=== PATIENT | female | born 1960 | race Hispanic/Latino ===

== ENCOUNTER 2017-04-15 11:16 | Emergency (ER) | payer MEDICAID, OTHER, SELFPAY ==
[2017-04-15 11:42] LABS: #Eosinphils 0.1 thou/uL (0.0-0.7); #Lymphocytes 1.2 thou/uL (1.20-3.40); #Monocytes 0.2 thou/uL (0.11-0.59); #Neutrophils 2.9 thou/uL (1.40-6.50); %Eosinophils 1.8 % (0.0-10.0); %Lymphocytes 27.6 % (21.0-51.0); Hematocrit 35.8 % (36.0-47.0); Mean Platelet Volume 8.8 fL (7.4-10.4); Red Blood Cell (RBC) Count 4.19 mill/uL (4.20-5.40); White Blood Cell (WBC) Count 4.4 thou/uL (4.8-10.8)
--- NOTE | 2017-04-15 11:45 | RAD ---
CHEST ONE VIEW: 04/15/2017 11:33 a.m. HISTORY: Chest pain. COMPARISON: 09/14/2016 FINDINGS: The heart size is borderline. The lungs are well expanded without focal areas of consolidation, pne umothorax, or pleural effusions. No degenerative changes in the spine. IMPRESSION: No acute process. POS: [facility]
[2017-04-15 12:04] LABS: ALT (SGPT) 7 U/L (8-55); AST (SGOT) 14 U/L (5-34); Alkaline Phosphatase 72 U/L (40-150); Anion Gap 12 mmol/L (10-20); BUN (Urea Nitrogen) 17 mg/dL (9.8-20.1); Bilirubin, Total 0.8 mg/dL (0.2-1.2); CK (CPK) 147 U/L (29-168); Calc. Creatinine Clearance 0 mL/min (70-130); Calcium 9.3 mg/dL (7.8-10.44); Carbon Dioxide 27 mmol/L (22-29); Chloride 105 mmol/L (98-107); Estimated GFR-MDRD Greater than 90; Globulin 3.2 g/dL (2.4-3.5); Lipase 18 U/L (8-78); Protein, Total 7.3 g/dL (6.0-8.3)
[2017-04-15 12:05] LABS: Troponin I Less than 0.010 ng/mL (< 0.028)
[2017-04-15 14:36] LABS: Troponin I 0.011 ng/mL (< 0.028)
== END 2017-04-15 15:05 | disposition home or self-care (01) ==
LOC: ERS 11:16
DX: R07.9 Chest pain, unspecified (principal); H10.9 Unspecified conjunctivitis; I25.10 Atherosclerotic heart disease of native coronary artery without angina pectoris; E78.5 Hyperlipidemia, unspecified; E11.9 Type 2 diabetes mellitus without complications; I10 Essential (primary) hypertension; F41.9 Anxiety disorder, unspecified; F32.9 Major depressive disorder, single episode, unspecified; F17.210 Nicotine dependence, cigarettes, uncomplicated; Z79.82 Long term (current) use of aspirin; Z79.899 Other long term (current) drug therapy
CPT/HCPCS: 36415; 71010; 80053; 82553; 83690; 83880; 84484; 85025; 93005; 96374

== ENCOUNTER 2017-05-09 06:17 | Observation (INO) | payer SELFPAY ==
[2017-05-09 07:16] LABS: #Eosinphils 0.1 thou/uL (0.0-0.7); #Lymphocytes 1.4 thou/uL (1.20-3.40); #Monocytes 0.3 thou/uL (0.11-0.59); #Neutrophils 3.2 thou/uL (1.40-6.50); %Basophils 0.5 % (0.0-1.0); %Lymphocytes 27.2 % (21.0-51.0); %Monocytes 6.3 % (0.0-10.0); Hematocrit 42.8 % (36.0-47.0); Mean Platelet Volume 8.8 fL (7.4-10.4); Red Blood Cell (RBC) Count 4.97 mill/uL (4.20-5.40)
[2017-05-09 07:40] LABS: ALT (SGPT) 35 U/L (8-55); AST (SGOT) 34 U/L (5-34); Alkaline Phosphatase 97 U/L (40-150); Anion Gap 12 mmol/L (10-20); BUN (Urea Nitrogen) 19 mg/dL (9.8-20.1); Bilirubin, Total 1.1 mg/dL (0.2-1.2); Calc. Creatinine Clearance 0 mL/min (70-130); Calcium 9.4 mg/dL (7.8-10.44); Carbon Dioxide 25 mmol/L (22-29); Chloride 106 mmol/L (98-107); Estimated GFR-MDRD 80; Globulin 3.4 g/dL (2.4-3.5); Lipase 32 U/L (8-78); Protein, Total 7.7 g/dL (6.0-8.3)
[2017-05-09 07:44] LABS: Troponin I 0.028 ng/mL (< 0.028)
--- NOTE | 2017-05-09 08:44 | RAD ---
SINGLE VIEW OF THE CHEST: 05/09/17 COMPARISON: 04/15/17 HISTORY: CHF and dyspnea. Shortness of breath over the last three days. FINDINGS: Single view of the chest shows a normal sized cardiomediastinal silhouette. Increased interstitial m arkings are present. There is no evidence of consolidation, mass or pleural effusion. IMPRESSION: No evidence of acute cardiopulmonary disease. POS: [facility]
[2017-05-09] MEDS ORDERED: Ketorolac Tromethamine 30 MG/ML VIAL ONE (09:49)
--- NOTE | 2017-05-09 10:38 | CT ---
CT PULMONARY ANGIOGRAM WITH IV CONTRAST AND 3D MIP RECONSTRUCTIONS 05/09/17 PROVIDED CLINICAL HISTORY: Dyspnea. FINDINGS: Comparison is made with the study dated 04/28/16. The heart, pericardium and great vessels demonstrate an unremarkable CT appearance. Cardiac stent ma terial is seen. There is no evidence for central or segmental pulmonary embolus. There is prominence of the pulmonary vasculature and thickening of the pulmonary interstitium likely reflecting changes of congestive failure. There are small bilateral pleural effusions. There is no evidence for pneumo thorax. No evidence for thoracic lymph node enlargement. The airway appears patent and of normal edith iber. The visualized portions of the upper abdomen demonstrate no acute findings. Biliary gas is aga in noted, presumably on the basis of prior sphincterotomy. IMPRESSION: 1. No evidence for central or segmental pulmonary embolus. 2. Findings suggesting congestive failure. POS: [facility]
[2017-05-09 11:33] LABS: Troponin I 0.022 ng/mL (< 0.028)
[2017-05-09 11:43] VITALS: BMI 29.5
[2017-05-09] MEDS ORDERED: Senokot 8.6 MG TAB PO PRN (11:52)
[2017-05-09] MEDS ORDERED: Ondansetron ODT 4 MG TAB PO PRN (11:52)
[2017-05-09] MEDS ORDERED: Mag-Al 1200 mg/1200 mg/30 ML UDCUP PO PRN (11:52)
[2017-05-09] MEDS ORDERED: Ondansetron HCl/PF 4 MG/2 ML Vial IVP PRN (11:52)
[2017-05-09] MEDS ORDERED: Milk Of Magnesia 30 ML UDCUP PO PRN (11:52)
[2017-05-09] MEDS ORDERED: Zolpidem Tartrate 5 MG TAB PO PRN (11:52)
[2017-05-09] MEDS ORDERED: Loperamide HCl 2 MG CAP PO PRN (11:52)
[2017-05-09] MEDS ORDERED: PROVENTIL INHALER 6.7 G (200 INHALATIONS) INH PRN (11:54)
[2017-05-09] MEDS ORDERED: Nitroglycerin 0.4 MG TAB (25 Tab Bottle) SL PRN (12:00)
--- NOTE | 2017-05-09 13:07 | HP ---
PRIMARY CARE PHYSICIAN: [facility] call admission. At this point, the patient is not following any prima care physician. REASON FOR ADMISSION: Acute on chronic systolic heart failure exacerbation. HISTORY OF PRESENT ILLNESS: A 57-year-old female who has underlying history of chronic sys tolic heart failure. Her echocardiography in 2015 showed EF 35-40% with diastolic dysfunction and m ost recent echocardiography in the 10/2016 showed improvement in EF to 40-45%. She also had a cardi ac catheterization in 04/2016 which showed 2-vessel coronary artery disease. At that time, medical therapy was advised. This patient does not have any insurance for about a year and she is no longer following primary car e physician. She reports that she still has some leftover medication from previous hospitalization, but most of the medicine she ran out. At this time, she is coming to the emergency room with 2 weeks history of increasing shortness of br eath after walking few steps, she gets out of breath. 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 She also reports some leg swelling. She also feels weight gain. She does report orthopnea as well as PND. She feels congestion in her with ches t tightness. She denies any exertional related chest pain, palpitations or syncope. She denies any fever, chills, or cough. She denies any flu-like illness. She denies any recent exposure. She de nies any sick exposure. REVIEW OF SYSTEMS: The following complete review of systems was negative, unless otherwise mentione d in the HPI or below: Constitutional: Weight loss or gain, ability to conduct usual activities. Skin: Rash, itching. Eyes: Double vision, pain. ENT/Mouth: Nose bleeding, neck stiffness, pain, tenderness. Cardiovascular: Palpitations, dyspnea on exertion, orthopnea. Respiratory: Shortness of breath, wheezing, cough, hemoptysis, fever or night sweats. Gastrointestinal: Poor appetite, abdominal pain, heartburn, nausea, vomiting, constipation, or diar matthew. Genitourinary: Urgency, frequency, dysuria, nocturia. Musculoskeletal: Pain, swelling. Neurologic/Psychiatric: Anxiety, depression. Allergy/Immunologic: Skin rash, bleeding tendency. Please see my HPI for pertinent positives and negative. All other review of system reviewed and ne gative except as mentioned in the HPI. PAST MEDICAL HISTORY: Chronic systolic and diastolic heart failure with EF 40-45%, coronary artery disease with a history of angioplasty and stent placement, hypertension, and dyslipidemia. PAST SURGICAL HISTORY: Cardiac catheterization with stent placement as well as angioplasty, tubal l igation, tonsillectomy, and cholecystectomy. PAST PSYCHIATRIC HISTORY: Anxiety and depression. SOCIAL HISTORY: The patient is working in [employer]. She is smoking few cigarettes on a daily basis, but quit smoking about 2 months ago. She denies any alcohol or other illicit drug abuse. FAMILY HISTORY: Mother has history of congestive heart failure, hypertension, and diabetes. Father of colon cancer by age of 76 years of age. Her of massive heart attack. Current ly, she stays with son and granddaughter. ALLERGIES: CODEINE AND LATEX. EMERGENCY ROOM COURSE: The patient is given aspirin 324 mg and Toradol 15 mg. CURRENT HOME MEDICATIONS: Proventil HFA 2 puffs q.4 hourly p.r.n., aspirin 81 mg p.o. daily, Lipito r 10 mg p.o. daily, Coreg 3.125 mg p.o. b.i.d., Lasix 20 mg p.o. daily, lisinopril 10 mg p.o. b.i.d. , Singulair 10 mg p.o. at bedtime, nitroglycerin 0.4 mg sublingual p.r.n., and Aldactone 25 mg p.o. daily. PHYSICAL EXAMINATION: VITAL SIGNS: On arrival, blood pressure 169/84, pulse 70, respiratory rate 22, temperature 97.6, sa turation 98% on room air, weight 68 kilograms. GENERAL: The patient is currently alert, awake, no obvious acute distress. HEENT: Head: Normocephalic and atraumatic. Eyes: Pupils round and reactive to light. Extraocula r muscles are intact. ENT: Oropharynx within normal limits. Moist mucous membranes. No oral lesi ons. No pharyngeal erythema, no exudate. NECK: Supple. Range of motion is normal. No meningeal signs of irritation. LUNGS: Bibasilar rales noted. No wheezing, no accessory muscles of respiration in use. CARDIAC: S1, S2 regular without any significant murmur, no gallop. ABDOMEN: Soft, bowel sounds present, nontender, nondistended. No organomegaly, no mass, no suprapu bic tenderness. BACK: Unremarkable, no CVA tenderness. EXTREMITIES: Upper extremity passive movements of all joints are normal. Lower extremity, trace bi lateral lower extremity edema noted. Good peripheral pulsation. SKIN: No skin rash. HEMATOLOGICAL: No lymphadenopathy. PSYCHIATRIC: Normal affect. SIGNIFICANT LABS: EKG showing normal sinus rhythm, LVH. Chest x-ray: Cardiomegaly. CT angio nega tive for PE, but finding consistent with CHF. CBC: WBC 5.0, hemoglobin 14.6, platelets 201, D-dime r 0.74. BMP: Sodium 139, potassium 4.0, chloride 106, carbon dioxide 25, BUN 19, creatinine 0.75, glucose 110, calcium 9.4. LFT: AST 34, ALT 35, alkaline phosphatase 97, albumin 4.3, lipase 32, CK -MB 1.2, troponin I 0.028 and 0.022. BNP 469.3. ASSESSMENT AND PLAN/IMPRESSION: 1. Acute on chronic systolic and diastolic congestive heart failure exacerbation suspecting from me dication noncompliance. At this point, the patient has history of orthopnea, PND, leg swelling, denise vated BNP and dyspnea on exertion all supports diagnosis of congestive heart failure exacerbation. She had echocardiography this year on 10/2016 which showed EF 40-45%. This patient will be admitted to telemetry floor for observation. We will treat her today and tomorrow with IV Lasix. We will p rescribe all new medication prescriptions to her because she ran out and she does not have any prima care physician. Heart failure education given, fluid restriction 1200 mL per day discussed. 2. Coronary artery disease, 2-vessel. She had cardiac catheterization recently and medical therapy was advised. At this point, we will continue aspirin 81 mg p.o. daily, Lipitor 10 mg p.o. daily, C oreg 3.125 mg b.i.d., along with lisinopril 10 mg p.o. b.i.d. 3. Hypertension, not well controlled. Continue with Coreg 3.125 mg b.i.d., lisinopril 10 mg p.o. b .i.d., Aldactone 25 mg p.o. daily and adjust blood pressure medication. We will also add Nitro-Bid 0.5 inch q.8 hourly and upon discharge we will consider adding Imdur 30 mg p.o. daily. 4. Dyslipidemia. Continue Lipitor 10 mg p.o. at bedtime. 5. Tobacco abuse disorder. Smoking cessation counseling given. 6. Deep venous thrombosis prophylaxis not needed because we are expecting discharge in 24 hours. 7. Gastrointestinal prophylaxis. Pepcid 20 mg p.o. b.i.d. 8. Code status: The patient is FULL CODE. The patient does not have any surrogate decision maker. Disposition and plan based on clinical course, likely 24 hours. Tomorrow, we will repeat labs and r eplace electrolytes if needed. We will prescribe all new medication upon discharge.
[2017-05-09] MEDS ORDERED: ISOVUE-370 76%-LOCM 1 ML ONE (13:40)
[2017-05-09] MEDS: Nitroglycerin 2% Ointment 1 INCH/1 GM Packet TOP SCH ×2 (14:01→21:21)
[2017-05-09] MEDS: Furosemide 40 MG/4 ML VIAL SLOW IVP SCH (14:03)
[2017-05-09 14:07] LABS: Troponin I 0.012 ng/mL (< 0.028)
[2017-05-09] MEDS: Carvedilol 3.125 MG TAB PO SCH (17:10)
[2017-05-09] MEDS: Acetaminophen 325 MG TAB PO PRN ×2 (17:12→21:25)
[2017-05-09] MEDS: Lisinopril 10 MG TAB PO SCH (20:05)
[2017-05-09] MEDS: Famotidine 20 MG TAB PO SCH (20:06)
[2017-05-09] MEDS ORDERED: FLU VACC QS2017-18 36 mo. & older 0.5 ML SYRINGE IM ONE (21:00)
[2017-05-09] MEDS ORDERED: Montelukast Sodium 10 mg Tablet PO SCH (21:00)
[2017-05-10] MEDS: Nitroglycerin 2% Ointment 1 INCH/1 GM Packet TOP SCH ×2 (05:06→16:25)
[2017-05-10] MEDS: Acetaminophen 325 MG TAB PO PRN (05:07)
[2017-05-10] MEDS: Furosemide 40 MG/4 ML VIAL SLOW IVP SCH ×2 (05:07→16:25)
[2017-05-10 05:20] LABS: #Eosinphils 0.1 thou/uL (0.0-0.7); #Lymphocytes 1.1 thou/uL (1.20-3.40); #Monocytes 0.3 thou/uL (0.11-0.59); #Neutrophils 2.9 thou/uL (1.40-6.50); %Basophils 0.2 % (0.0-1.0); %Eosinophils 2.2 % (0.0-10.0); %Lymphocytes 24.9 % (21.0-51.0); %Monocytes 7.2 % (0.0-10.0); Hematocrit 36.3 % (36.0-47.0); Mean Platelet Volume 9.4 fL (7.4-10.4); Red Blood Cell (RBC) Count 4.11 mill/uL (4.20-5.40); White Blood Cell (WBC) Count 4.5 thou/uL (4.8-10.8)
[2017-05-10 05:23] LABS: Anion Gap 10 mmol/L (10-20); BUN (Urea Nitrogen) 17 mg/dL (9.8-20.1); Calc. Creatinine Clearance 108 mL/min (70-130); Carbon Dioxide 28 mmol/L (22-29); Chloride 104 mmol/L (98-107); Estimated GFR-MDRD Greater than 90; Magnesium 2.2 mg/dL (1.6-2.6); Uric Acid 3.6 mg/dL (2.6-6.0)
[2017-05-10] MEDS ORDERED: Sodium Chloride 0.9% 0 ML ONE (07:43)
[2017-05-10] MEDS ORDERED: Spironolactone 25 MG TAB PO SCH (08:00)
[2017-05-10] MEDS ORDERED: Potassium Chloride 20 MEQ TAB PO SCH (08:00)
[2017-05-10] MEDS: Famotidine 20 MG TAB PO SCH (08:58)
[2017-05-10] MEDS: Lisinopril 10 MG TAB PO SCH (08:58)
[2017-05-10] MEDS: Carvedilol 3.125 MG TAB PO SCH (08:59)
[2017-05-10] MEDS ORDERED: Atorvastatin Calcium 10 MG TAB PO SCH (09:00)
[2017-05-10] MEDS ORDERED: Aspirin 81 mg Enteric Coated Tablet PO SCH (09:00)
--- NOTE | 2017-05-10 10:01 | PDOC.PN ---
- Subjective Encounter Start Date: 05/10/17 Encounter Start Time: 08:15 Subjective: breathing better, no chest pain - Objective Resuscitation Status: Resuscitation Status FULL:Full Resuscitation MAR Reviewed: Yes Vital Signs & Weight: Vital Signs (12 hours) Temp Pulse Resp BP BP Pulse Ox 05/10/17 09:00 97.7 F 65 16 05/10/17 08:58 139/65 05/10/17 07:44 97.7 F 65 16 139/65 97 05/10/17 04:00 97.8 F 56 L 18 129/67 97 05/10/17 03:56 97 Weight Weight 150 lb I&O: 05/09/17 05/10/17 05/11/17 06:59 06:59 06:59 Intake Total 664 Output Total 1800 Balance -1136 Result Diagrams: 05/10/17 03:50 05/10/17 03:50 Additional Labs: Accuchecks 05/09/17 05/09/17 20:25 16:46 POC Glucose 131 H 100 Phys Exam - Physical Examination HEENT: PERRLA, moist MMs Neck: no JVD, supple Respiratory: no wheezing, no rales Cardiovascular: RRR, no significant murmur Gastrointestinal: soft, non-tender, positive bowel sounds Musculoskeletal: no edema, pulses present Neurological: non-focal, moves all 4 limbs Psychiatric: A&O x 3 Dx/Plan (1) CHF exacerbation Code(s): I50.9 - HEART FAILURE, UNSPECIFIED Status: Acute Qualifiers: Congestive heart failure type: systolic Qualified Code(s): I50.23 - Acute on chronic systolic (congestive) heart failure Comment: ef of around 45% (2) Asthma Code(s): J45.909 - UNSPECIFIED ASTHMA, UNCOMPLICATED Status: Chronic Qualifiers: Asthma severity: mild Asthma persistence: intermittent Asthma complication type: uncomplicated Qualified Code(s): J45.20 - Mild intermittent asthma, uncomplicated (3) CAD (coronary artery disease) Code(s): I25.10 - ATHSCL HEART DISEASE OF [place] CORONARY ARTERY W/O ANG PCTRS Status: Chronic Qualifiers: Coronary Disease-Associated Artery/Lesion type: [place] artery [place] vs. transplanted heart: [place] heart Associated angina: without angina Qualified Code(s): I25.10 - Atherosclerotic heart disease of [place] coronary artery without angina pectoris (4) Cardiomyopathy Code(s): I42.9 - CARDIOMYOPATHY, UNSPECIFIED Status: Chronic (5) DM type 2 (diabetes mellitus, type 2) Status: Chronic Qualifiers: Diabetes mellitus complication status: with unspecified complications Diabetes mellitus termite exterminator helper insulin use: without termite exterminator helper use Qualified Code( s): E11.8 - Type 2 diabetes mellitus with unspecified complications (6) Dyslipidemia Code(s): E78.5 - HYPERLIPIDEMIA, UNSPECIFIED Status: Chronic (7) HTN (hypertension) Code(s): I10 - ESSENTIAL (PRIMARY) HYPERTENSION Status: Chronic Qualifiers: Hypertension type: essential hypertension - Plan hemostable -: wants help with medications, cant afford -: may dc home if med help is done * .
[2017-05-10 15:17] VITALS: BP 142/66; TEMP 98.6
--- NOTE | 2017-05-10 20:04 | DIS ---
DATE OF ADMISSION: 05/09/2017 DATE OF DISCHARGE: 05/10/2017 DISCHARGE DISPOSITION: To home. PRIMARY DISCHARGE DIAGNOSES: Acute on chronic congestive heart failure exacerbation with systolic and diastolic dysfunction, resolved. SECONDARY DISCHARGE DIAGNOSES: History of cardiomyopathy, hypertension, diabetes mellitus type 2, coronary artery disease, and dyslipidemia. PROCEDURES DONE DURING HOSPITALIZATION: The patient has had CT angio chest done , which showed no evidence of PE. This finding suggestive of pulmonary vascular congestion. BNP was 469. Troponin x3 was negative. DISCHARGE MEDICATIONS: Albuterol inhaler q.6 hourly p.r.n., aspirin 81 mg p.o. daily, Lipitor 10 mg p.o. daily, Coreg 3.125 mg p.o. twice daily, Lasix 20 mg p.o. daily, lisinopril 10 mg p.o. twice daily, Singulair 10 mg p.o. at bedtime, and spironolactone 25 mg p.o. daily. ALLERGIES: CODEINE, LATEX. DISCHARGE PLAN: The patient to follow up with primary care physician in 1 week. BRIEF COURSE DURING HOSPITALIZATION: The patient initially got admitted on the with complaints of shortness of breath, which has been progressively getting worse from last two weeks. She was essentially admitted for acute congestive heart failure exacerbation with systolic and diastolic dysfunction. The patient was noncompliant with medications due to financial reasons. She was gently diuresed during her stay. She was ambulating and eating well prior to discharge. Case management consultation was requested for help with medications for home use. She has been counseled with regarding medication compliance and to follow up with her primary care physician in 1 week. Please see a [id number] documentation on [facility] for the day of discharge. MTDD
== END 2017-05-10 16:24 | disposition home or self-care (01) ==
LOC: ERS 06:17 → 2SW 10:30
PROVIDERS: ADMIT Hospitalist; ATTEND Hospitalist
DX: I11.0 Hypertensive heart disease with heart failure (principal); I50.43 Acute on chronic combined systolic (congestive) and diastolic (congestive) heart failure; I42.9 Cardiomyopathy, unspecified; E11.9 Type 2 diabetes mellitus without complications; I25.10 Atherosclerotic heart disease of native coronary artery without angina pectoris; F17.210 Nicotine dependence, cigarettes, uncomplicated; Z88.5 Allergy status to narcotic agent; Z91.040 Latex allergy status; Z79.899 Other long term (current) drug therapy; Z98.51 Tubal ligation status; Z90.49 Acquired absence of other specified parts of digestive tract; Z82.49 Family history of ischemic heart disease and other diseases of the circulatory system
CPT/HCPCS: 36415; 36416; 71010; 71275; 80048; 80053; 82553; 83690; 83735; 83880; 84484; 84550; 85025; 85379; 90471; 90682; 93005; 93798; 94760; 96374; 96375; 96376; A4216; G0008; G0378; J1885; J1940; Q2036

== ENCOUNTER 2017-07-08 07:33 | Emergency (ER) | payer MEDICAID, OTHER, SELFPAY | END 2017-07-08 10:09 | disposition home or self-care (01) | LOC: ERS 07:33 | DX: B34.9 Viral infection, unspecified (principal); I25.10 Atherosclerotic heart disease of native coronary artery without angina pectoris; E78.5 Hyperlipidemia, unspecified; I11.0 Hypertensive heart disease with heart failure; I50.9 Heart failure, unspecified; E11.9 Type 2 diabetes mellitus without complications; F41.9 Anxiety disorder, unspecified; F32.9 Major depressive disorder, single episode, unspecified; F17.210 Nicotine dependence, cigarettes, uncomplicated; Z79.899 Other long term (current) drug therapy; Z79.82 Long term (current) use of aspirin | CPT/HCPCS: 99406 ==

== ENCOUNTER 2017-09-25 11:34 | Inpatient (IN) | payer OTHER, SELFPAY ==
[2017-09-25 12:06] LABS: #Eosinphils 0.1 thou/uL (0.0-0.7); #Lymphocytes 1.1 thou/uL (1.20-3.40); #Monocytes 0.3 thou/uL (0.11-0.59); #Neutrophils 3.8 thou/uL (1.40-6.50); %Basophils 0.2 % (0.0-1.0); %Eosinophils 1.3 % (0.0-10.0); %Lymphocytes 20.8 % (21.0-51.0); %Monocytes 4.8 % (0.0-10.0); %Neutrophils 72.9 % (42.0-75.0); Hemoglobin 12.5 g/dL (12.0-16.0); Mean Corpuscular HGB CONC 33.7 g/dL (32.0-36.0); Mean Corpuscular Hemoglobin 28.5 pg (27.0-31.0); Mean Corpuscular Volume 84.6 fl (81.0-99.0); Mean Platelet Volume 8.3 fL (7.4-10.4); Platelet Count 187 thou/uL (130-400); RBC Distribution Width 12.3 % (11.5-14.5); White Blood Cell (WBC) Count 5.2 thou/uL (4.8-10.8)
--- NOTE | 2017-09-25 12:10 | RAD ---
PORTABLE CHEST 1 VIEW: DATE: 09/25/17. TIME: 12:04 p.m. HISTORY: Shortness of breath, CHF, chest pain. FINDINGS: Comparison is made with the exam of 05/09/17. The heart size is enlarged. No lobar consolidation, pneumothorax, eliane pulmonary edema, or pleural effusions are seen. IMPRESSION: Cardiomegaly without overt congestive heart failure. POS: [facility]
[2017-09-25 12:33] LABS: ALT (SGPT) 21 U/L (8-55); AST (SGOT) 20 U/L (5-34); Albumin 4.3 g/dL (3.5-5.0); Alkaline Phosphatase 103 U/L (40-150); Anion Gap 12 mmol/L (10-20); BUN (Urea Nitrogen) 20 mg/dL (9.8-20.1); Bilirubin, Total 0.9 mg/dL (0.2-1.2); Calc. Creatinine Clearance 0 mL/min (70-130); Calcium 9.3 mg/dL (7.8-10.44); Carbon Dioxide 23 mmol/L (22-29); Chloride 107 mmol/L (98-107); Estimated GFR-MDRD 90; Glucose 155 mg/dL (70-105); Potassium 3.7 mmol/L (3.5-5.1); Protein, Total 7.3 g/dL (6.0-8.3); Sodium 138 mmol/L (136-145)
[2017-09-25 12:36] LABS: CKMB 0.7 ng/mL (0-6.6); Troponin I 0.013 ng/mL (< 0.028)
[2017-09-25] MEDS ORDERED: Lisinopril 10 MG TAB ONE (12:59)
[2017-09-25] MEDS ORDERED: Furosemide 20 MG/2 ML VIAL ONE (13:07)
[2017-09-25] MEDS ORDERED: Hydrochlorothiazide 25 MG TAB PO SCH (13:30)
[2017-09-25] MEDS ORDERED: Albuterol Sulfate 2.5 mg/3 ml Neb NEB PRN (14:33)
[2017-09-25] MEDS ORDERED: HumaLOG 300 UNITS/3 ML VIAL SC PRN (14:39)
[2017-09-25] MEDS ORDERED: Dextrose 50% Abboject 50 ML SYRINGE SLOW IVP PRN (14:39)
[2017-09-25] MEDS ORDERED: Dextrose 5% in Water 1,000 ML IV PRN (14:39)
[2017-09-25] MEDS ORDERED: Nitroglycerin 0.4 MG TAB (25 Tab Bottle) SL PRN (14:57)
[2017-09-25] MEDS ORDERED: Milk Of Magnesia 30 ML UDCUP PO PRN (14:58)
--- NOTE | 2017-09-25 15:44 | HP ---
PRIMARY CARE PHYSICIAN: None. PRESENTING COMPLAINT: Chest pain. HISTORY OF PRESENT ILLNESS: Monalisa Fink is a 57-year-old with a past medical history of asthma, C HF, CAD status post stents, hypertension, and depression who presented to the emergency room with a 3 -week history of intermittent chest pain. She reports substernal tightness rated 4-5/10, which does not radiate, aggravated by walking up the stairs and relieved by using her nitroglycerin. She report s that about 3 days ago, the symptoms got worse and was associated with nausea and fatigue, but no vo miting. She also experienced some wheezing and felt like she was suffocating. She states that she r an out of her medications about a month ago and the last time she took nitroglycerin was about a week ago. At the emergency room, she was not in any acute distress. Labs were largely unremarkable. In itial troponin was negative. Her BNP was slightly elevated from her baseline at around 600. Chest x -ray, however, did not show any signs of vascular congestion. EKG showed no signs of acute ischemia. He received aspirin, one dose of IV furosemide and her home medications of hydrochlorothiazide and lisinopril. She was then admitted for chest pain to rule out ACS. PAST MEDICAL HISTORY: Asthma, CHF, CAD status post stent, hypertension, and depression. PAST SURGICAL HISTORY: Tonsillectomy and stent placement. FAMILY HISTORY: Mom has CAD, other family history noncontributory. SOCIAL HISTORY: She is a former smoker and drinks alcohol on rare occasions. She does not use any i llicit drugs. ALLERGIES: CODEINE and LATEX. CODE STATUS: FULL. REVIEW OF SYSTEMS: Constitutional: Denies fevers, chills, headaches. HEENT: Negative. Respirator y: Wheezing. Denies cough, shortness of breath, or sputum production. Cardiovascular: Per HPI. D enies palpitations, edema, PND, orthopnea. Gastrointestinal: Negative except as stated in HPI. Gen itourinary: Negative. Musculoskeletal: Negative. Skin: Negative. Hematologic: Negative. Psych iatric: Negative. Neurologic: Negative. Allergy/Immunology: Negative. PHYSICAL EXAMINATION: VITAL SIGNS: Within normal limits. GENERAL: Not in acute distress, sitting comfortably in bed. HEENT: Normocephalic, atraumatic. PERRLA, EOMI, not pale, anicteric with moist mucous membranes. NECK: Supple, with full range of movement. No JVD. LUNGS: Vesicular breath sounds bilaterally with no wheezes or rales. CARDIOVASCULAR: S1 and S2, only with no murmurs, rubs or gallops. Chest not tender to palpation. ABDOMEN: Bowel sounds present, nontender, nondistended, no organomegaly. MUSCULOSKELETAL: No edema, no skeletal abnormalities. SKIN: Warm, dry, well-perfused. No rashes or lesions. NEUROLOGIC: Alert and well oriented to time, place and person. No focal deficits. PSYCHIATRIC: Normal mood and affect. LABORATORY DATA: As stated in HPI. IMAGING: As stated in the HPI. EKG as stated in HPI. ASSESSMENT AND PLAN: 1. Chest pain/angina. The patient had a significant cardiac history and presents with what seems to be stable angina. Symptoms are likely from her medication nonadherence. She reports she does not h ave a primary care physician and no insurance to procure her medications. She is, however, in the pr ocess of getting insurance through her new job and is waiting for that to kick in. We will admit to telemetry, trend cardiac enzymes, place on nitroglycerin and IV morphine for chest pain p.r.n. We wi ll observe overnight and if symptoms persist, we will get a Cardiology consult. 2. Asthma history. Has not been compliant with her medications, so we will place on albuterol nebul izers p.r.n. for shortness of breath. 3. Coronary artery disease, status post stents. For plan, see problem #1. 4. Hypertension. On outpatient basis, she takes lisinopril and carvedilol. We will resume these me dications. 5. Congestive heart failure. She is not in acute exacerbation, although she received a dose of IV f urosemide in the emergency room for elevated BNP. Clinically, not in congestive heart failure. We w ill resume home medications including furosemide 20 mg daily and spironolactone 25 mg daily. Her las t ejection fraction was about 40%. 6. Depression. Denies depress moods, homicidal or suicidal ideations.
[2017-09-25] MEDS ORDERED: Ketorolac Tromethamine 30 MG/ML VIAL ONE (15:50)
[2017-09-25 19:14] LABS: Troponin I 0.023 ng/mL (< 0.028)
[2017-09-25 19:25] VITALS: BMI 29.1
[2017-09-25] MEDS: Famotidine 20 MG TAB PO SCH (21:43)
[2017-09-25] MEDS: Docusate 100 MG CAP PO SCH (21:43)
[2017-09-26 01:02] LABS: Troponin I 0.019 ng/mL (< 0.028)
[2017-09-26 05:52] LABS: #Eosinphils 0.1 thou/uL (0.0-0.7); #Lymphocytes 1.4 thou/uL (1.20-3.40); #Monocytes 0.4 thou/uL (0.11-0.59); #Neutrophils 2.9 thou/uL (1.40-6.50); %Basophils 0.8 % (0.0-1.0); %Eosinophils 2.7 % (0.0-10.0); %Lymphocytes 28.5 % (21.0-51.0); %Monocytes 7.4 % (0.0-10.0); %Neutrophils 60.6 % (42.0-75.0); Mean Corpuscular HGB CONC 34.5 g/dL (32.0-36.0); Mean Corpuscular Volume 86.9 fl (81.0-99.0); Mean Platelet Volume 8.8 fL (7.4-10.4); Platelet Count 177 thou/uL (130-400); RBC Distribution Width 12.2 % (11.5-14.5); White Blood Cell (WBC) Count 4.8 thou/uL (4.8-10.8)
[2017-09-26 05:58] LABS: Hemoglobin A1c 4.9 % (4.0-6.0)
[2017-09-26 06:00] LABS: Anion Gap 13 mmol/L (10-20); BUN (Urea Nitrogen) 17 mg/dL (9.8-20.1); Calc. Creatinine Clearance 113 mL/min (70-130); Calcium 8.9 mg/dL (7.8-10.44); Carbon Dioxide 24 mmol/L (22-29); Cardiac Risk 3.5 (Less than 4.5); Chloride 104 mmol/L (98-107); Cholesterol 162 mg/dl (< 200 Desired); Estimated GFR-MDRD Greater than 90; Glucose 95 mg/dL (70-105); HDL Cholesterol 46 mg/dL (>60 Neg Risk); LDL Cholesterol, Calculated 96 mg/dL; Potassium 3.2 mmol/L (3.5-5.1); Sodium 138 mmol/L (136-145); Triglycerides 101 mg/dL (Less than 150)
[2017-09-26] MEDS: Famotidine 20 MG TAB PO SCH ×2 (09:03→21:22)
[2017-09-26] MEDS: Enoxaparin Sodium 40 MG/0.4 ML SYRINGE SC SCH (09:04)
[2017-09-26] MEDS: Docusate 100 MG CAP PO SCH ×2 (09:04→21:22)
[2017-09-26] MEDS: Potassium Chloride 20 MEQ TAB PO SCH ×2 (09:09→17:06)
[2017-09-26] MEDS: Ondansetron ODT 4 MG TAB PO PRN (09:09)
[2017-09-26] MEDS: Lisinopril 10 MG TAB PO SCH ×2 (09:10→21:22)
[2017-09-26] MEDS: Carvedilol 3.125 MG TAB PO SCH ×2 (09:10→17:06)
[2017-09-26] MEDS: Spironolactone 25 MG TAB PO SCH (09:10)
[2017-09-26] MEDS: Atorvastatin Calcium 10 MG TAB PO SCH (09:10)
[2017-09-26] MEDS: Aspirin 81 mg Enteric Coated Tablet PO SCH (09:10)
[2017-09-26] MEDS: Furosemide 20 MG TAB PO SCH (09:10)
--- NOTE | 2017-09-26 11:45 | PDOC.PN ---
- Subjective Encounter Start Date: 09/26/17 Encounter Start Time: 11:48 Subjective: Still has intermittent chest pain -: No acute events overnight. - Objective MAR Reviewed: Yes Vital Signs & Weight: Vital Signs (12 hours) Temp Pulse Resp BP BP Pulse Ox 09/26/17 09:10 140/72 09/26/17 08:00 97.8 F 66 17 140/72 95 09/26/17 04:00 98 F 66 18 137/65 98 Weight Weight 150 lb 11.2 oz I&O: 09/25/17 09/26/17 09/27/17 06:59 06:59 06:59 Intake Total 480 Output Total 600 Balance -120 Result Diagrams: 09/26/17 05:27 09/26/17 05:27 Additional Labs: Accuchecks 09/26/17 09/26/17 09/25/17 11:26 06:20 20:45 POC Glucose 99 97 151 H Phys Exam - Physical Examination Constitutional: NAD HEENT: PERRLA, moist MMs, sclera anicteric Neck: supple, full ROM Respiratory: no wheezing, no rales, no rhonchi, clear to auscultation bilateral Cardiovascular: RRR, no significant murmur, no rub Gastrointestinal: soft, non-tender, no distention, positive bowel sounds Musculoskeletal: no edema, pulses present Neurological: non-focal, moves all 4 limbs Psychiatric: normal affect, A&O x 3 Skin: no rash, normal turgor Dx/Plan (1) Chest pain Code(s): R07.9 - CHEST PAIN, UNSPECIFIED Status: Resolved Comment: Improving. Cardiac enzymes trended and negative. Likely 2/2 medication adherence. Will obtain a cardiology consult. Continue NTG and morphine PRN for chest pain. (2) CAD (coronary artery disease) Code(s): I25.10 - ATHSCL HEART DISEASE OF [place] CORONARY ARTERY W/O ANG PCTRS Status: Chronic Qualifiers: Coronary Disease-Associated Artery/Lesion type: unspecified vessel or lesion type [place] vs. transplanted heart: [place] heart Associated angina: with stable angina Qualified Code(s): I25.118 - Atherosclerotic heart disease of [place] coronary artery with other forms of angina pectoris Comment: As above (3) Systolic CHF, chronic Code(s): I50.22 - CHRONIC SYSTOLIC (CONGESTIVE) HEART FAILURE Status: Chronic Comment: Not in acute exacerbation. Will resume home meds. (4) HTN (hypertension) Code(s): I10 - ESSENTIAL (PRIMARY) HYPERTENSION Status: Chronic Qualifiers: Hypertension type: essential hypertension Comment: Fairly well controlled. Will continue home meds. (5) Asthma Code(s): J45.909 - UNSPECIFIED ASTHMA, UNCOMPLICATED Status: Chronic Qualifiers: Asthma severity: mild Asthma persistence: intermittent Asthma complication type: unspecified Qualified Code(s): J45.20 - Mild intermittent asthma, uncomplicated Comment: Nebs PRN. Not in acute exacerbation. (6) Dyslipidemia Code(s): E78.5 - HYPERLIPIDEMIA, UNSPECIFIED Status: Chronic Comment: Continue Atorvastatin. - Plan cont current plan of care, out of bed/ambulate, DVT proph w/lovenox * .
--- NOTE | 2017-09-26 17:00 | CON ---
CARDIOLOGY CONSULTATION NOTE DATE OF CONSULTATION: 09/26/2017 REASON FOR CONSULTATION: Chest pain. PRIMARY CAR DUMPER OPERATOR: Hyacinth Oconnor M.D. HISTORY OF PRESENT ILLNESS: Ms. Fink is a very pleasant 57-year-old female who comes to the hospital for chest pain. She is a patient of Dr. Oconnor. She was seen mostly here in the [facility]. She has a significant history of coronary artery disease with previous stents to the LAD and a di agonal branch. Back in 2014, Dr. Oconnor did a repeat catheterization that showed that she had progress ion of coronary artery disease just distal to the diagonal stent, as well as LAD in-stent restenosis and angioplasty and stent placement was performed at that time. She presented to the hospital a year later in 04/2016 and she had a repeat catheterization that showed that both her LAD and diagonal doris nts were widely patent and she did have a right posterolateral branch that showed to have probably 50 % to 60% stenosis. Fractional flow reserve was done of that artery and 0.86, so she did not receive intervention at that time. She has been doing well. She really never has been seen in the office. She states she ran out of all her medications about 1 month ago and has not been on anything since. She has an EF of about 40% to 45% on last evaluation, which was back in 10/2016. She states that sin ce she has been on her medications, she has been feeling much worse. She gets chest tightness when s he goes up a flight of stairs. She also gets chest tightness, but being active at work. She is work ing on trying to get insurance. She recently got a new job and she will be eligible for insurance in the near future, so she is more confident. She will be able to tolerate all medications. She tells me that while taking her home regimen, she did feel a little bit better, but still continued to have episodes of chest pain. PAST MEDICAL HISTORY: 1. Coronary artery disease. 2. Chronic systolic heart failure, last EF evaluated at 40% to 45%. 3. Bronchial asthma. 4. Hypertension. 5. Depression. PAST SURGICAL HISTORY: 1. Tonsillectomy. 2. Stent placement as well. FAMILY HISTORY: Mother with early CAD, otherwise noncontributory. SOCIAL HISTORY: Former smoker, social alcohol use. No drug use. ALLERGIES: CODEINE and LATEX. OUTPATIENT MEDICATIONS: 1. Aspirin 81 a day. 2. Albuterol inhaler. 3. Furosemide 20 mg a day. 4. Carvedilol 3.125 mg b.i.d. 5. Atorvastatin 10 mg a day. 6. Lisinopril 10 mg b.i.d. 7. Singulair. 8. Sublingual nitro. 9. Aldactone 25 mg a day. REVIEW OF SYSTEMS: A 12-point review of systems was done and is all negative unless as stated in the history of present illness. PHYSICAL EXAMINATION: VITAL SIGNS: Temperature 98.4, pulse 68, respiration rate 16, satting 95% on room air and blood pres sure 112/60. GENERAL: Awake, alert and oriented x3, in no distress. HEENT: Normocephalic and atraumatic. NECK: Supple. LUNGS: Clear. CARDIOVASCULAR: S1 and S2. No S3 or S4. No murmurs or rubs. ABDOMEN: Soft. Positive bowel sounds. EXTREMITIES: No edema. SKIN: Warm and dry. LABORATORY WORK: Reviewed. It showed a white count of 4.8, hemoglobin of 12, hematocrit of 34 and p latelet count of 177. Chemistries with a sodium of 138, potassium is 3.2, chloride of 104, carbon di oxide of 24, anion gap of 13, BUN of 17, creatinine 0.6, GFR greater than 90 and glucose of 95. Hemo globin A1c is 4.9 and calcium 8.9. Troponin is negative x3. Triglycerides of 101. Cholesterol tota l of 162, LDL of 96 and HDL of 46. IMAGING DATA: Chest x-ray on admission shows cardiomegaly without significant heart failure. EKG was reviewed. ASSESSMENT AND PLAN: 1. Chest pain: Certainly this could be angina. She states that currently at rest, she is pain free . We will plan on further risk stratification with a nuclear stress test. We will plan on doing thi s tomorrow morning as she has had a full meal just now. 2. Coronary artery disease with previous stents to the left anterior descending and the diagonal in a bifurcating manner, also residual moderate disease on an RPL. As above, stress test to be done. 3. Chronic systolic heart failure: She seems euvolemic at this time. Restart home medications incl uding an CHYNA inhibitor, beta-reza, statin, aspirin and daily Lasix. 4. Further recommendations in the morning by Dr. Oconnor, her primary horser up.
[2017-09-26] MEDS: Montelukast Sodium 10 mg Tablet PO SCH (21:22)
[2017-09-27 06:01] LABS: #Eosinphils 0.2 thou/uL (0.0-0.7); #Lymphocytes 1.3 thou/uL (1.20-3.40); #Monocytes 0.4 thou/uL (0.11-0.59); #Neutrophils 3.3 thou/uL (1.40-6.50); %Basophils 0.3 % (0.0-1.0); %Eosinophils 4.1 % (0.0-10.0); %Lymphocytes 25.5 % (21.0-51.0); %Monocytes 7.4 % (0.0-10.0); %Neutrophils 62.6 % (42.0-75.0); Hemoglobin 12.6 g/dL (12.0-16.0); Mean Corpuscular HGB CONC 34.5 g/dL (32.0-36.0); Mean Corpuscular Hemoglobin 29.8 pg (27.0-31.0); Mean Corpuscular Volume 86.6 fl (81.0-99.0); Mean Platelet Volume 8.7 fL (7.4-10.4); Platelet Count 201 thou/uL (130-400); RBC Distribution Width 12.2 % (11.5-14.5); Red Blood Cell (RBC) Count 4.23 mill/uL (4.20-5.40); White Blood Cell (WBC) Count 5.2 thou/uL (4.8-10.8)
[2017-09-27 06:09] LABS: Anion Gap 13 mmol/L (10-20); BUN (Urea Nitrogen) 11 mg/dL (9.8-20.1); Calc. Creatinine Clearance 105 mL/min (70-130); Calcium 9.6 mg/dL (7.8-10.44); Carbon Dioxide 26 mmol/L (22-29); Chloride 106 mmol/L (98-107); Estimated GFR-MDRD Greater than 90; Glucose 101 mg/dL (70-105); Potassium 4.5 mmol/L (3.5-5.1); Sodium 140 mmol/L (136-145)
[2017-09-27] MEDS: Famotidine 20 MG TAB PO SCH ×2 (08:05→20:06)
[2017-09-27] MEDS: Acetaminophen 325 MG TAB PO PRN ×2 (08:06→13:14)
[2017-09-27] MEDS: Ondansetron ODT 4 MG TAB PO PRN (13:14)
[2017-09-27] MEDS: Docusate 100 MG CAP PO SCH ×2 (13:15→20:06)
[2017-09-27] MEDS: Carvedilol 3.125 MG TAB PO SCH ×2 (13:15→16:58)
[2017-09-27] MEDS: Aspirin 81 mg Enteric Coated Tablet PO SCH (13:15)
[2017-09-27] MEDS: Lisinopril 10 MG TAB PO SCH ×2 (13:15→20:06)
[2017-09-27] MEDS: Atorvastatin Calcium 10 MG TAB PO SCH (13:15)
[2017-09-27] MEDS: Spironolactone 25 MG TAB PO SCH (13:15)
[2017-09-27] MEDS: Furosemide 20 MG TAB PO SCH (13:16)
[2017-09-27] MEDS: Enoxaparin Sodium 40 MG/0.4 ML SYRINGE SC SCH (13:20)
--- NOTE | 2017-09-27 13:24 | PDOC.PN ---
- Subjective Encounter Start Date: 09/27/17 Encounter Start Time: 13:25 Subjective: No complaints today. Chest pain resolved. -: No acute events overnight. - Objective MAR Reviewed: Yes Vital Signs & Weight: Vital Signs (12 hours) Temp Pulse Resp BP BP Pulse Ox 09/27/17 13:15 135/68 09/27/17 08:00 97.6 F 62 18 135/64 98 09/27/17 03:40 97.5 F L 58 L 14 120/61 98 Weight Weight 150 lb 4.8 oz I&O: 09/26/17 09/27/17 09/28/17 06:59 06:59 06:59 Intake Total 480 1920 Output Total 600 1150 Balance -120 770 Result Diagrams: 09/27/17 05:00 09/27/17 05:00 Additional Labs: Accuchecks 09/27/17 09/26/17 09/26/17 05:43 20:53 16:41 POC Glucose 93 92 180 H Phys Exam - Physical Examination Constitutional: NAD HEENT: PERRLA, moist MMs, sclera anicteric Neck: no JVD, supple, full ROM Respiratory: no wheezing, no rales, no rhonchi, clear to auscultation bilateral Cardiovascular: RRR, no significant murmur, no rub Gastrointestinal: soft, non-tender, no distention, positive bowel sounds Musculoskeletal: no edema, pulses present Neurological: non-focal, moves all 4 limbs Psychiatric: normal affect, A&O x 3 Skin: no rash, normal turgor Dx/Plan (1) CAD (coronary artery disease) Code(s): I25.10 - ATHSCL HEART DISEASE OF [place] CORONARY ARTERY W/O ANG PCTRS Status: Chronic Qualifiers: Coronary Disease-Associated Artery/Lesion type: unspecified vessel or lesion type [place] vs. transplanted heart: [place] heart Associated angina: with stable angina Qualified Code(s): I25.118 - Atherosclerotic heart disease of [place] coronary artery with other forms of angina pectoris Comment: Improving. Cardiac enzymes trended and negative. Likely 2/2 medication adherence. Cardiology on board. Stress test ordered. Continue NTG and morphine PRN for chest pain. (2) Systolic CHF, chronic Code(s): I50.22 - CHRONIC SYSTOLIC (CONGESTIVE) HEART FAILURE Status: Chronic Comment: Not in acute exacerbation. Will resume home meds. (3) HTN (hypertension) Code(s): I10 - ESSENTIAL (PRIMARY) HYPERTENSION Status: Chronic Qualifiers: Hypertension type: essential hypertension Comment: Fairly well controlled. Will continue home meds. (4) Asthma Code(s): J45.909 - UNSPECIFIED ASTHMA, UNCOMPLICATED Status: Chronic Qualifiers: Asthma severity: mild Asthma persistence: intermittent Asthma complication type: unspecified Qualified Code(s): J45.20 - Mild intermittent asthma, uncomplicated Comment: Nebs PRN. Not in acute exacerbation. (5) Dyslipidemia Code(s): E78.5 - HYPERLIPIDEMIA, UNSPECIFIED Status: Chronic Comment: Continue Atorvastatin. - Plan cont current plan of care, DVT proph w/lovenox Likely discharge if stress test normal. * . Review of Systems - Medications/Allergies Allergies/Adverse Reactions: Allergies Allergy/AdvReac Type Severity Reaction Status Date / Time codeine Allergy Verified 11/12/16 05:36 lactose Allergy Verified 09/26/17 09:02 Latex, Natural Rubber Allergy Rash Verified 11/12/16 05:36 Medications: Current Medications Acetaminophen (Tylenol) 650 mg PO Q4H PRN PRN Reason: Headache/Fever or Pain Last Admin: 09/27/17 13:14 Dose: 650 mg Albuterol Sulfate (Ventolin) 2.5 mg NEB [id number] PRN PRN Reason: Wheezing Aspirin (Ecotrin) 81 mg PO DAILY [facility] Last Admin: 09/27/17 13:15 Dose: 81 mg Atorvastatin Calcium (Lipitor) 10 mg PO DAILY [facility] Last Admin: 09/27/17 13:15 Dose: 10 mg Carvedilol (Coreg) 3.125 mg PO BID-[facility] Last Admin: 09/27/17 13:15 Dose: 3.125 mg Dextrose/Water (Dextrose 50%) 25 gm SLOW IVP PRN PRN PRN Reason: Hypoglycemia Docusate Sodium (Colace) 100 mg PO BID [facility] Last Admin: 09/27/17 13:15 Dose: Not Given Enoxaparin Sodium (Lovenox) 40 mg SC 0900 [facility] Last Admin: 09/27/17 13:20 Dose: 40 mg Famotidine (Pepcid) 20 mg PO BID [facility] Last Admin: 09/27/17 08:05 Dose: 20 mg Furosemide (Lasix) 20 mg PO DAILY [facility] Last Admin: 09/27/17 13:16 Dose: 20 mg Glucagon (Glucagon) 1 mg IM PRN PRN PRN Reason: Hypoglycemia Dextrose/Water (D5w) 1,000 mls @ 0 mls/hr IV .Q0M PRN; As Directed PRN Reason: Hypoglycemia Insulin Human Lispro (Humalog) 0 units SC .MILD SLIDING SCALE PRN PRN Reason: Mild Correctional Scale Lisinopril (Zestril) 10 mg PO BID [facility] Last Admin: 09/27/17 13:15 Dose: 10 mg Magnesium Hydroxide (Milk Of Magnesium) 30 ml PO DAILYPRN PRN PRN Reason: Constipation Montelukast Sodium (Singulair) 10 mg PO [facility] Last Admin: 09/26/17 21:22 Dose: 10 mg Morphine Sulfate (Morphine) 2 mg SLOW IVP Q5MIN PRN PRN Reason: Chest Pain Last Admin: 09/26/17 00:56 Dose: 2 mg Nitroglycerin (Nitrostat) 0.4 mg SL Q5MIN PRN PRN Reason: Chest Pain Ondansetron HCl (Zofran Odt) 4 mg PO Q6H PRN PRN Reason: Nausea/Vomiting Last Admin: 09/27/17 13:14 Dose: 4 mg Spironolactone (Aldactone) 25 mg PO DAILY [facility] Last Admin: 09/27/17 13:15 Dose: 25 mg
--- NOTE | 2017-09-27 15:20 | NM ---
MYOCARDIAL PERFUSION STUDY: 09/27/2017 HISTORY: Chest pain and history of coronary artery disease. History of coronary artery stent placement. CHF. Asthma. COMPARISON: 04/29/2016 RADIOPHARMACEUTICAL: Technetium 99m sestamibi 30.9 millicuries IV at stress. Technetium 99m sestamibi 9.4 millicuries IV at rest. MEDICATIONS: Lexiscan 0.4 mg IV. FINDINGS: There is a small focal area of diminished uptake of radiotracer seen within the anterior aspect of th e ventricular apex, slightly greater on the stress acquisition. No additional reversible defect is i dentified. The gated images demonstrate global hypokinesis, greatest involving the inferior left chepe tricular wall. Left ventricular ejection fraction is diminished at 32%. IMPRESSION: 1. Small focal area of reversibility at the anterior aspect, ventricular apex, which is equivocal fo r a very small focal area of ischemia, but this may be artifactual, due to shifting breast artifact b etween the rest and stress acquisitions. There is certainly no significant reversible defect seen be tween the stress and rest acquisitions. 2. Global hypokinesis, greatest involving the inferior left ventricular wall. 3. Decreased left ventricular ejection fraction of 32%. The left ventricular ejection fraction on t he study of 2015 was 29%. POS: [facility]
--- NOTE | 2017-09-27 15:39 | PDOC.CTH ---
<Ida Sepulveda - Last Filed: 09/27/17 15:37> Cardiology Progress Note - Subjective The pt seen and examined. No overnight events. She still complains of pressure /heaviness in her chest. - Objective Vital Signs Temp Pulse Resp BP BP Pulse Ox 09/27/17 13:15 135/68 09/27/17 08:00 97.6 F 62 18 135/64 98 09/27/17 03:40 97.5 F L 58 L 14 120/61 98 Weight 150 lb 4.8 oz 09/26/17 09/27/17 09/28/17 06:59 06:59 06:59 Intake Total 480 1920 Output Total 600 1150 Balance -120 770 - Physical Examination General/Neuro: alert & oriented x3 Neck: no JVD present Lungs: CTA Heart: RRR Abdomen: soft Extremities: other: (No edema) - Telemetry Telemetry Rhythm: SR - Labs Result Diagrams: 09/27/17 05:00 09/27/17 05:00 Troponin/CKMB CK-MB (CK-2) 0.7 ng/mL (0-6.6) 09/25/17 11:57 Troponin I 0.019 ng/mL (< 0.028) 09/26/17 00:32 - Assessment/Plan 1. CAD w/ hx of multiple PCI and stent in LAD - waiting for stress test result; still complains of pressure/heaviness in her chest; on BBlocker, CHYNA, Statin, ASA, Lovenox; cont. monitor on tele 2. HTN - stable with BBlocker, CHYNA. 3. Asthma - stable 4. Hyperlipidemia - on Statin 5. Depression - stable; MAR reviewed Review of Systems - Review of Systems Constitutional: reports: no symptoms reported EENTM: reports: no symptoms reported Respiratory: reports: shortness of breath Cardiac (ROS): reports: see HPI ABD/GI: reports: no symptoms reported : reports: no symptoms reported Musculoskeletal: reports: no symptoms reported <Roselia Oconnor - Last Filed: 09/27/17 22:27> Cardiology Progress Note - Objective Vital Signs Temp Pulse Resp BP BP Pulse Ox 09/27/17 20:06 120/61 09/27/17 20:05 97.5 F L 61 16 120/61 93 L 09/27/17 16:00 97.8 F 69 17 137/64 98 09/27/17 13:15 135/68 09/27/17 13:10 97.8 F 66 17 135/68 100 Weight 150 lb 4.8 oz 09/26/17 09/27/17 09/28/17 06:59 06:59 06:59 Intake Total 480 1920 600 Output Total 600 1150 700 Balance -120 770 -100 - Labs Result Diagrams: 09/27/17 05:00 09/27/17 05:00 Troponin/CKMB CK-MB (CK-2) 0.7 ng/mL (0-6.6) 09/25/17 11:57 Troponin I 0.019 ng/mL (< 0.028) 09/26/17 00:32 - Assessment/Plan Pt. seen and eval. by me. She continues to have some chest pressure at times. The stress test today indicated a small area of ischemia. The EF is decreased. Her last cath was in 2015. She is s/p ptca/stents to the LAD/diag. The distal RCA had a stenosis which did not meet the criteria for intervention. FFR>.80. Chest is clear. RRR with occasional ectopy. She will need a cardiac cath and a Life-vest or AICD prior to d/c.
[2017-09-27] MEDS ORDERED: Regadenoson 0.4 MG/5 ML SYRINGE ONE (16:42)
[2017-09-27] MEDS: Montelukast Sodium 10 mg Tablet PO SCH (20:06)
[2017-09-28 05:16] LABS: #Eosinphils 0.1 thou/uL (0.0-0.7); #Lymphocytes 1.4 thou/uL (1.20-3.40); #Monocytes 0.4 thou/uL (0.11-0.59); #Neutrophils 2.8 thou/uL (1.40-6.50); %Basophils 0.5 % (0.0-1.0); %Eosinophils 2.9 % (0.0-10.0); %Lymphocytes 30.2 % (21.0-51.0); %Monocytes 7.5 % (0.0-10.0); %Neutrophils 58.9 % (42.0-75.0); Hemoglobin 12.5 g/dL (12.0-16.0); Mean Corpuscular HGB CONC 34.4 g/dL (32.0-36.0); Mean Corpuscular Hemoglobin 29.7 pg (27.0-31.0); Mean Corpuscular Volume 86.1 fl (81.0-99.0); Mean Platelet Volume 8.6 fL (7.4-10.4); Platelet Count 198 thou/uL (130-400); RBC Distribution Width 12.2 % (11.5-14.5); Red Blood Cell (RBC) Count 4.22 mill/uL (4.20-5.40); White Blood Cell (WBC) Count 4.8 thou/uL (4.8-10.8)
[2017-09-28 05:28] LABS: Anion Gap 11 mmol/L (10-20); BUN (Urea Nitrogen) 14 mg/dL (9.8-20.1); Calc. Creatinine Clearance 81 mL/min (70-130); Calcium 9.3 mg/dL (7.8-10.44); Carbon Dioxide 28 mmol/L (22-29); Chloride 105 mmol/L (98-107); Estimated GFR-MDRD 70; Glucose 117 mg/dL (70-105); Sodium 140 mmol/L (136-145)
[2017-09-28] MEDS: Acetaminophen 325 MG TAB PO PRN (08:44)
[2017-09-28] MEDS: Lisinopril 10 MG TAB PO SCH ×2 (08:44→21:09)
[2017-09-28] MEDS: Famotidine 20 MG TAB PO SCH ×2 (08:44→21:09)
[2017-09-28] MEDS: Aspirin 81 mg Enteric Coated Tablet PO SCH (08:44)
[2017-09-28] MEDS: Carvedilol 3.125 MG TAB PO SCH ×2 (08:45→17:32)
[2017-09-28] MEDS: Furosemide 20 MG TAB PO SCH (08:45)
[2017-09-28] MEDS: Spironolactone 25 MG TAB PO SCH (08:45)
[2017-09-28] MEDS: Docusate 100 MG CAP PO SCH ×2 (08:45→21:10)
[2017-09-28] MEDS: Enoxaparin Sodium 40 MG/0.4 ML SYRINGE SC SCH (08:45)
[2017-09-28] MEDS: Atorvastatin Calcium 10 MG TAB PO SCH (08:45)
--- NOTE | 2017-09-28 10:31 | PDOC.PN ---
- Subjective Encounter Start Date: 09/28/17 Encounter Start Time: 10:32 Subjective: Still has intermittent chest pain several times daily -: No acute events overnight. - Objective MAR Reviewed: Yes Vital Signs & Weight: Vital Signs (12 hours) Temp Pulse Resp BP BP Pulse Ox 09/28/17 08:44 122/56 L 09/28/17 07:42 97.6 F 65 16 122/56 L 94 L 09/28/17 04:00 97.5 F L 61 18 118/56 L 96 Weight Weight 150 lb 3.2 oz I&O: 09/27/17 09/28/17 09/29/17 06:59 06:59 07:59 Intake Total 1920 850 Output Total 1150 1600 Balance 770 -750 Result Diagrams: 09/28/17 04:56 09/28/17 04:56 Additional Labs: Accuchecks 09/28/17 09/27/17 09/27/17 05:40 20:40 16:26 POC Glucose 124 H 94 103 Phys Exam - Physical Examination Constitutional: NAD HEENT: PERRLA, moist MMs, sclera anicteric Neck: no JVD, supple, full ROM Respiratory: no wheezing, no rales, no rhonchi, clear to auscultation bilateral Cardiovascular: RRR, no significant murmur, no rub Gastrointestinal: soft, non-tender, no distention, positive bowel sounds Musculoskeletal: no edema, pulses present Neurological: non-focal, moves all 4 limbs Skin: no rash, normal turgor Dx/Plan (1) CAD (coronary artery disease) Code(s): I25.10 - ATHSCL HEART DISEASE OF [place] CORONARY ARTERY W/O ANG PCTRS Status: Chronic Qualifiers: Coronary Disease-Associated Artery/Lesion type: unspecified vessel or lesion type [place] vs. transplanted heart: [place] heart Associated angina: with stable angina Qualified Code(s): I25.118 - Atherosclerotic heart disease of [place] coronary artery with other forms of angina pectoris Comment: Still has intermittent pain. Stress test showed small reversible ischemia. Shceduled for LHC. Continue NTG PRN for chest pain. (2) Systolic CHF, chronic Code(s): I50.22 - CHRONIC SYSTOLIC (CONGESTIVE) HEART FAILURE Status: Chronic Comment: Not in acute exacerbation. Continue home meds. (3) HTN (hypertension) Code(s): I10 - ESSENTIAL (PRIMARY) HYPERTENSION Status: Chronic Qualifiers: Hypertension type: essential hypertension Comment: Controlled, at goal. Will continue home meds. (4) Asthma Code(s): J45.909 - UNSPECIFIED ASTHMA, UNCOMPLICATED Status: Chronic Qualifiers: Asthma severity: mild Asthma persistence: intermittent Asthma complication type: unspecified Qualified Code(s): J45.20 - Mild intermittent asthma, uncomplicated Comment: Nebs PRN. Not in acute exacerbation. (5) Dyslipidemia Code(s): E78.5 - HYPERLIPIDEMIA, UNSPECIFIED Status: Chronic Comment: Continue Atorvastatin. - Plan cont current plan of care, plan discussed w/ family, DVT proph w/lovenox To get LHC -: Continue NTG PRN for chest pain. * . Review of Systems - Medications/Allergies Allergies/Adverse Reactions: Allergies Allergy/AdvReac Type Severity Reaction Status Date / Time codeine Allergy Verified 11/12/16 05:36 lactose Allergy Verified 09/26/17 09:02 Latex, Natural Rubber Allergy Rash Verified 11/12/16 05:36 Medications: Current Medications Acetaminophen (Tylenol) 650 mg PO Q4H PRN PRN Reason: Headache/Fever or Pain Last Admin: 09/28/17 08:44 Dose: 650 mg Albuterol Sulfate (Ventolin) 2.5 mg NEB [id number] PRN PRN Reason: Wheezing Aspirin (Ecotrin) 81 mg PO DAILY [facility] Last Admin: 09/28/17 08:44 Dose: 81 mg Atorvastatin Calcium (Lipitor) 10 mg PO DAILY [facility] Last Admin: 09/28/17 08:45 Dose: 10 mg Carvedilol (Coreg) 3.125 mg PO BID-[facility] Last Admin: 09/28/17 08:45 Dose: 3.125 mg Dextrose/Water (Dextrose 50%) 25 gm SLOW IVP PRN PRN PRN Reason: Hypoglycemia Docusate Sodium (Colace) 100 mg PO BID [facility] Last Admin: 09/28/17 08:45 Dose: 100 mg Enoxaparin Sodium (Lovenox) 40 mg SC 0900 [facility] Last Admin: 09/28/17 08:45 Dose: 40 mg Famotidine (Pepcid) 20 mg PO BID [facility] Last Admin: 09/28/17 08:44 Dose: 20 mg Furosemide (Lasix) 20 mg PO DAILY [facility] Last Admin: 09/28/17 08:45 Dose: 20 mg Glucagon (Glucagon) 1 mg IM PRN PRN PRN Reason: Hypoglycemia Dextrose/Water (D5w) 1,000 mls @ 0 mls/hr IV .Q0M PRN; As Directed PRN Reason: Hypoglycemia Insulin Human Lispro (Humalog) 0 units SC .MILD SLIDING SCALE PRN PRN Reason: Mild Correctional Scale Lisinopril (Zestril) 10 mg PO BID [facility] Last Admin: 09/28/17 08:44 Dose: 10 mg Magnesium Hydroxide (Milk Of Magnesium) 30 ml PO DAILYPRN PRN PRN Reason: Constipation Montelukast Sodium (Singulair) 10 mg PO HS [facility] Last Admin: 09/27/17 20:06 Dose: 10 mg Morphine Sulfate (Morphine) 2 mg SLOW IVP Q5MIN PRN PRN Reason: Chest Pain Last Admin: 09/26/17 00:56 Dose: 2 mg Nitroglycerin (Nitrostat) 0.4 mg SL Q5MIN PRN PRN Reason: Chest Pain Ondansetron HCl (Zofran Odt) 4 mg PO Q6H PRN PRN Reason: Nausea/Vomiting Last Admin: 09/27/17 13:14 Dose: 4 mg Spironolactone (Aldactone) 25 mg PO DAILY [facility] Last Admin: 09/28/17 08:45 Dose: 25 mg
[2017-09-28] MEDS: Morphine 2 MG/ML SYRINGE SLOW IVP PRN (13:37)
--- NOTE | 2017-09-28 17:34 | EKG ---
Test Reason : Blood Pressure : / mmHG Vent. Rate : 087 BPM Atrial Rate : 087 BPM P-R Int : 116 ms QRS Dur : 092 ms QT Int : 390 ms P-R-T Axes : -11 011 263 degrees QTc Int : 469 ms Normal sinus rhythm Voltage criteria for left ventricular hypertrophy Prolonged QT Abnormal ECG Confirmed by MARY JONES, LINCOLN ([id number]), metropolitan editor MERRILL CAMARENA ([id number]) on 09/28/2017 5:33:48 PM Referred By: Confirmed By:LINCOLN HERNANDEZ MD
[2017-09-28] MEDS: Montelukast Sodium 10 mg Tablet PO SCH (21:09)
[2017-09-29 05:47] LABS: #Eosinphils 0.1 thou/uL (0.0-0.7); #Lymphocytes 1.6 thou/uL (1.20-3.40); #Monocytes 0.4 thou/uL (0.11-0.59); #Neutrophils 2.8 thou/uL (1.40-6.50); %Basophils 0.2 % (0.0-1.0); %Eosinophils 2.9 % (0.0-10.0); %Lymphocytes 32.5 % (21.0-51.0); %Monocytes 8.3 % (0.0-10.0); %Neutrophils 56.1 % (42.0-75.0); Hemoglobin 12.6 g/dL (12.0-16.0); Mean Corpuscular HGB CONC 34.4 g/dL (32.0-36.0); Mean Corpuscular Hemoglobin 29.6 pg (27.0-31.0); Mean Corpuscular Volume 86.2 fl (81.0-99.0); Mean Platelet Volume 8.7 fL (7.4-10.4); Platelet Count 199 thou/uL (130-400); Red Blood Cell (RBC) Count 4.24 mill/uL (4.20-5.40)
[2017-09-29 05:54] LABS: Anion Gap 10 mmol/L (10-20); BUN (Urea Nitrogen) 14 mg/dL (9.8-20.1); Calc. Creatinine Clearance 95 mL/min (70-130); Calcium 9.7 mg/dL (7.8-10.44); Carbon Dioxide 32 mmol/L (22-29); Chloride 101 mmol/L (98-107); Estimated GFR-MDRD 84; Glucose 118 mg/dL (70-105); Potassium 4.7 mmol/L (3.5-5.1); Sodium 138 mmol/L (136-145)
[2017-09-29] MEDS ORDERED: diphenhydrAMINE 25 MG CAP PO PRN (08:30)
[2017-09-29] MEDS ORDERED: Diazepam 5 MG TAB PO SCH (08:45)
[2017-09-29] MEDS ORDERED: Communication Order-Pharmacy FS SCH (08:45)
[2017-09-29] MEDS: Furosemide 20 MG TAB PO SCH (10:20)
[2017-09-29] MEDS: Enoxaparin Sodium 40 MG/0.4 ML SYRINGE SC SCH (10:20)
[2017-09-29] MEDS: Lisinopril 10 MG TAB PO SCH ×2 (10:21→21:59)
[2017-09-29] MEDS: Atorvastatin Calcium 10 MG TAB PO SCH (10:21)
[2017-09-29] MEDS: Aspirin 81 mg Enteric Coated Tablet PO SCH (10:21)
[2017-09-29] MEDS: Spironolactone 25 MG TAB PO SCH (10:21)
[2017-09-29] MEDS: Docusate 100 MG CAP PO SCH ×2 (10:21→21:59)
[2017-09-29] MEDS: Carvedilol 3.125 MG TAB PO SCH ×2 (10:21→17:16)
[2017-09-29] MEDS: Famotidine 20 MG TAB PO SCH ×2 (10:22→21:59)
--- NOTE | 2017-09-29 11:16 | PDOC.PN ---
- Subjective Encounter Start Date: 09/29/17 Encounter Start Time: 09:40 has intermittent back pains that radiate to her chest. otherwise no other signiificant events - Objective Vital Signs & Weight: Vital Signs (12 hours) Temp Pulse Resp BP BP Pulse Ox 09/29/17 10:21 124/59 L 09/29/17 08:00 97.8 F 65 16 124/59 L 95 09/29/17 07:20 95 09/29/17 05:35 97.9 F 60 14 114/55 L 93 L Weight Weight 151 lb 3.2 oz I&O: 09/28/17 09/29/17 09/30/17 05:59 06:59 06:59 Intake Total Output Total Balance Result Diagrams: 09/29/17 05:13 09/29/17 05:13 Additional Labs: Accuchecks 09/29/17 09/28/17 09/28/17 05:37 20:05 16:50 POC Glucose 109 135 H 84 09/28/17 11:27 POC Glucose 97 Phys Exam - Physical Examination Constitutional: NAD HEENT: PERRLA, moist MMs, sclera anicteric Neck: no nodes, no JVD, supple Respiratory: no wheezing, clear to auscultation bilateral Cardiovascular: RRR, no significant murmur Gastrointestinal: soft, non-tender, no distention Musculoskeletal: pulses present Neurological: non-focal, moves all 4 limbs Psychiatric: normal affect, A&O x 3 Dx/Plan (1) Systolic CHF, chronic Code(s): I50.22 - CHRONIC SYSTOLIC (CONGESTIVE) HEART FAILURE Status: Chronic Comment: Not in acute exacerbation. Continue home meds. (2) CAD (coronary artery disease) Code(s): I25.10 - ATHSCL HEART DISEASE OF [place] CORONARY ARTERY W/O ANG PCTRS Status: Chronic Qualifiers: Coronary Disease-Associated Artery/Lesion type: unspecified vessel or lesion type [place] vs. transplanted heart: [place] heart Associated angina: with stable angina Qualified Code(s): I25.118 - Atherosclerotic heart disease of [place] coronary artery with other forms of angina pectoris Comment: Still has intermittent pain. Stress test showed small reversible ischemia. Shceduled for LHC. Continue NTG PRN for chest pain. (3) DM type 2 (diabetes mellitus, type 2) Status: Chronic Qualifiers: Diabetes mellitus complication status: with unspecified complications Diabetes mellitus quality control assistant insulin use: without quality control assistant use Qualified Code( s): E11.8 - Type 2 diabetes mellitus with unspecified complications (4) HTN (hypertension) Code(s): I10 - ESSENTIAL (PRIMARY) HYPERTENSION Status: Chronic Qualifiers: Hypertension type: essential hypertension Comment: Controlled, at goal. Will continue home meds. (5) Chest pain Code(s): R07.9 - CHEST PAIN, UNSPECIFIED Status: Resolved - Plan cont current plan of care, plan discussed w/ family * . cath tmrw cardio followings current current meds pain mgmt control
[2017-09-29] MEDS: Hydrocortisone 1% Cream 30 GM TUBE TOP SCH ×3 (11:28→22:02)
[2017-09-29] MEDS: Morphine 2 MG/ML SYRINGE SLOW IVP PRN ×2 (11:42→23:09)
[2017-09-29] MEDS: Montelukast Sodium 10 mg Tablet PO SCH (22:00)
[2017-09-30] MEDS: Lisinopril 10 MG TAB PO SCH ×2 (05:51→20:15)
[2017-09-30] MEDS: Carvedilol 3.125 MG TAB PO SCH ×2 (05:51→05:52)
[2017-09-30] MEDS ORDERED: Heparin 0 ML ONE (07:05)
[2017-09-30] MEDS ORDERED: Lidocaine 1% (PF) 30 ML VIAL ONE ×2 (07:05→08:08)
[2017-09-30 07:15] LABS: #Basophils 0.1 thou/uL (0.0-0.2); #Eosinphils 0.1 thou/uL (0.0-0.7); #Lymphocytes 1.2 thou/uL (1.20-3.40); #Monocytes 0.4 thou/uL (0.11-0.59); #Neutrophils 3.3 thou/uL (1.40-6.50); %Basophils 1.1 % (0.0-1.0); %Eosinophils 2.7 % (0.0-10.0); %Lymphocytes 24.1 % (21.0-51.0); %Neutrophils 65.1 % (42.0-75.0); Hemoglobin 12.6 g/dL (12.0-16.0); Mean Corpuscular HGB CONC 34.3 g/dL (32.0-36.0); Mean Corpuscular Volume 87.4 fl (81.0-99.0); Mean Platelet Volume 9.1 fL (7.4-10.4); Platelet Count 201 thou/uL (130-400); RBC Distribution Width 11.8 % (11.5-14.5); Red Blood Cell (RBC) Count 4.22 mill/uL (4.20-5.40); White Blood Cell (WBC) Count 5.1 thou/uL (4.8-10.8)
[2017-09-30 07:32] LABS: Anion Gap 12 mmol/L (10-20); BUN (Urea Nitrogen) 19 mg/dL (9.8-20.1); Calc. Creatinine Clearance 103 mL/min (70-130); Calcium 9.8 mg/dL (7.8-10.44); Carbon Dioxide 27 mmol/L (22-29); Chloride 102 mmol/L (98-107); Estimated GFR-MDRD Greater than 90; Glucose 106 mg/dL (70-105); Potassium 4.3 mmol/L (3.5-5.1); Sodium 137 mmol/L (136-145)
[2017-09-30] MEDS ORDERED: Fentanyl 100 MCG/2 ML VIAL ONE (08:34)
[2017-09-30] MEDS ORDERED: Midazolam HCl 2 mg/2 ml Vial ONE (08:34)
[2017-09-30] MEDS ORDERED: Nitroglycerin 0.4 MG TAB (25 Tab Bottle) SL PRN (08:51)
[2017-09-30] MEDS ORDERED: Sodium Chloride 0.9% 200 ML IV SCH (09:00)
[2017-09-30] MEDS: Docusate 100 MG CAP PO SCH ×2 (09:40→20:15)
[2017-09-30] MEDS: Aspirin 81 mg Enteric Coated Tablet PO SCH (09:41)
[2017-09-30] MEDS: Enoxaparin Sodium 40 MG/0.4 ML SYRINGE SC SCH (09:41)
[2017-09-30] MEDS: Atorvastatin Calcium 10 MG TAB PO SCH (09:41)
[2017-09-30] MEDS: Famotidine 20 MG TAB PO SCH ×2 (09:41→20:15)
[2017-09-30] MEDS: Spironolactone 25 MG TAB PO SCH (09:41)
[2017-09-30] MEDS: Furosemide 20 MG TAB PO SCH (09:41)
[2017-09-30] MEDS: Hydrocortisone 1% Cream 30 GM TUBE TOP SCH ×2 (09:43→20:17)
--- NOTE | 2017-09-30 10:00 | PDOC.PN ---
- Subjective Encounter Start Date: 09/30/17 Encounter Start Time: 06:30 no acute night events. cath today - Objective Vital Signs & Weight: Vital Signs (12 hours) Temp Pulse Resp BP BP Pulse Ox 09/30/17 06:28 65 124/64 98 09/30/17 05:51 119/58 L 09/30/17 04:00 97.9 F 66 18 119/58 L 96 09/29/17 21:59 132/69 Weight Weight 148 lb 11.2 oz I&O: 09/29/17 09/30/17 10/01/17 06:59 06:59 06:59 Intake Total 800 Output Total 100 Balance 700 Result Diagrams: 09/30/17 06:50 09/30/17 06:50 Additional Labs: Accuchecks 09/30/17 09/29/17 09/29/17 05:48 21:12 17:14 POC Glucose 117 H 133 H 130 H 09/29/17 11:21 POC Glucose 93 Phys Exam - Physical Examination Constitutional: NAD HEENT: PERRLA, moist MMs Neck: no nodes, no JVD, supple Respiratory: no wheezing, no rales Cardiovascular: RRR, no rub Gastrointestinal: soft, non-tender, no distention Musculoskeletal: pulses present Dx/Plan (1) Systolic CHF, chronic Code(s): I50.22 - CHRONIC SYSTOLIC (CONGESTIVE) HEART FAILURE Status: Chronic Comment: Not in acute exacerbation. Continue home meds. (2) CAD (coronary artery disease) Code(s): I25.10 - ATHSCL HEART DISEASE OF [place] CORONARY ARTERY W/O ANG PCTRS Status: Chronic Qualifiers: Coronary Disease-Associated Artery/Lesion type: unspecified vessel or lesion type [place] vs. transplanted heart: [place] heart Associated angina: with stable angina Qualified Code(s): I25.118 - Atherosclerotic heart disease of [place] coronary artery with other forms of angina pectoris Comment: Still has intermittent pain. Stress test showed small reversible ischemia. Shceduled for LHC. Continue NTG PRN for chest pain. (3) DM type 2 (diabetes mellitus, type 2) Status: Chronic Qualifiers: Diabetes mellitus complication status: with unspecified complications Diabetes mellitus rn long term care insulin use: without rn long term care use Qualified Code( s): E11.8 - Type 2 diabetes mellitus with unspecified complications (4) HTN (hypertension) Code(s): I10 - ESSENTIAL (PRIMARY) HYPERTENSION Status: Chronic Qualifiers: Hypertension type: essential hypertension Comment: Controlled, at goal. Will continue home meds. (5) Chest pain Code(s): R07.9 - CHEST PAIN, UNSPECIFIED Status: Resolved - Plan cont current plan of care * . cath today pending recs from cardiology post cath continue current mgmt sliding scale insulin
[2017-09-30] MEDS: Acetaminophen 325 MG TAB PO PRN ×3 (12:24→20:16)
[2017-09-30] MEDS: Montelukast Sodium 10 mg Tablet PO SCH (20:15)
[2017-10-01 05:35] LABS: #Eosinphils 0.1 thou/uL (0.0-0.7); #Lymphocytes 1.5 thou/uL (1.20-3.40); #Monocytes 0.3 thou/uL (0.11-0.59); #Neutrophils 3.1 thou/uL (1.40-6.50); %Basophils 0.7 % (0.0-1.0); %Eosinophils 2.5 % (0.0-10.0); %Lymphocytes 28.7 % (21.0-51.0); %Neutrophils 62.1 % (42.0-75.0); Hemoglobin 13.2 g/dL (12.0-16.0); Mean Corpuscular HGB CONC 34.5 g/dL (32.0-36.0); Mean Corpuscular Hemoglobin 30.1 pg (27.0-31.0); Mean Corpuscular Volume 87.4 fl (81.0-99.0); Mean Platelet Volume 9.2 fL (7.4-10.4); Platelet Count 215 thou/uL (130-400); RBC Distribution Width 11.8 % (11.5-14.5); Red Blood Cell (RBC) Count 4.39 mill/uL (4.20-5.40)
[2017-10-01 05:42] LABS: Anion Gap 14 mmol/L (10-20); BUN (Urea Nitrogen) 24 mg/dL (9.8-20.1); Calc. Creatinine Clearance 89 mL/min (70-130); Calcium 9.5 mg/dL (7.8-10.44); Carbon Dioxide 25 mmol/L (22-29); Chloride 102 mmol/L (98-107); Estimated GFR-MDRD 79; Glucose 147 mg/dL (70-105); Potassium 3.7 mmol/L (3.5-5.1); Sodium 137 mmol/L (136-145)
[2017-10-01 08:04] VITALS: TEMP 98.1
[2017-10-01] MEDS: Carvedilol 3.125 MG TAB PO SCH (09:23)
[2017-10-01] MEDS: Atorvastatin Calcium 10 MG TAB PO SCH (09:23)
[2017-10-01] MEDS: Enoxaparin Sodium 40 MG/0.4 ML SYRINGE SC SCH (09:23)
[2017-10-01] MEDS: Aspirin 81 mg Enteric Coated Tablet PO SCH (09:23)
[2017-10-01] MEDS: Famotidine 20 MG TAB PO SCH (09:24)
[2017-10-01] MEDS: Spironolactone 25 MG TAB PO SCH (09:24)
[2017-10-01] MEDS: Lisinopril 10 MG TAB PO SCH (09:24)
[2017-10-01] MEDS: Furosemide 20 MG TAB PO SCH (09:24)
[2017-10-01] MEDS: Hydrocortisone 1% Cream 30 GM TUBE TOP SCH (09:26)
[2017-10-01] MEDS: Docusate 100 MG CAP PO SCH (09:26)
[2017-10-01] MEDS ORDERED: Iopamidol 370 76% 100 ML VIAL ONE (10:31)
[2017-10-01 15:13] VITALS: BP 122/64
== END 2017-10-01 12:15 | disposition home or self-care (01) | DRG 287 ==
LOC: ERS 11:34 → OBSVTOIN 15:03 → 2NO 15:03 → INTOOBSV 15:03
PROVIDERS: ADMIT Family Medicine; ATTEND Family Medicine
PROC: C23GYZZ Positron Emission Tomographic (PET) Imaging of Myocardium using Other Radionuclide (ICD-10-PCS; 2017-09-27)
PROC: 4A023N7 Measurement of Cardiac Sampling and Pressure, Left Heart, Percutaneous Approach (ICD-10-PCS; principal; 2017-09-30)
PROC: B2111ZZ Fluoroscopy of Multiple Coronary Arteries using Low Osmolar Contrast (ICD-10-PCS; 2017-09-30)
PROC: B2151ZZ Fluoroscopy of Left Heart using Low Osmolar Contrast (ICD-10-PCS; 2017-09-30)
DX: I25.118 Atherosclerotic heart disease of native coronary artery with other forms of angina pectoris (principal); I11.0 Hypertensive heart disease with heart failure; I50.22 Chronic systolic (congestive) heart failure; E11.9 Type 2 diabetes mellitus without complications; F32.9 Major depressive disorder, single episode, unspecified; Z95.5 Presence of coronary angioplasty implant and graft; Z87.891 Personal history of nicotine dependence; Z88.5 Allergy status to narcotic agent; Z91.040 Latex allergy status; Z79.82 Long term (current) use of aspirin; L20.9 Atopic dermatitis, unspecified; E78.5 Hyperlipidemia, unspecified; J45.20 Mild intermittent asthma, uncomplicated; F41.9 Anxiety disorder, unspecified
CPT/HCPCS: 36415; 36416; 71045; 76942; 78452; 80048; 80053; 80061; 82553; 83036; 83880; 84484; 85025; 93005; 93017; 93306; 93458; 93798; 96374; 96375; 99152; A4216; A9500; C1769; J1644; J1650; J1885; J1940; J2001; J2250; J2270; J2785; J3010; Q0162

== ENCOUNTER 2018-07-25 18:48 | Inpatient (IN) | payer SELFPAY ==
--- NOTE | 2018-07-25 19:27 | RAD ---
CHEST ONE VIEW: 07/25/18 HISTORY: Congestive heart failure. COMPARISON: Radiograph 09/25/17. FINDINGS: Heart size is enlarged. No pneumothorax. No effusion. Granuloma in the left lung apex. IMPRESSION: Cardiomegaly without significant pulmonary edema. POS: HOME
[2018-07-25 19:51] LABS: #Eosinphils 0.1 thou/uL (0.0-0.7); #Lymphocytes 1.4 thou/uL (1.20-3.40); #Monocytes 0.3 thou/uL (0.11-0.59); #Neutrophils 3.5 thou/uL (1.40-6.50); %Basophils 0.9 % (0.0-1.0); %Eosinophils 1.1 % (0.0-10.0); %Lymphocytes 26.8 % (21.0-51.0); %Monocytes 4.9 % (0.0-10.0); %Neutrophils 66.2 % (42.0-75.0); Hemoglobin 14.6 g/dL (12.0-16.0); Mean Corpuscular HGB CONC 35.6 g/dL (32.0-36.0); Mean Corpuscular Hemoglobin 30.1 pg (27.0-31.0); Mean Corpuscular Volume 84.5 fL (78.0-98.0); Mean Platelet Volume 9.1 fL (7.4-10.4); Platelet Count 201 thou/uL (130-400); RBC Distribution Width 11.9 % (11.5-14.5); Red Blood Cell (RBC) Count 4.86 mill/uL (4.20-5.40); White Blood Cell (WBC) Count 5.3 thou/uL (4.8-10.8)
[2018-07-25 20:12] LABS: ALT (SGPT) 57 U/L (8-55); AST (SGOT) 57 U/L (5-34); Albumin 4.6 g/dL (3.5-5.0); Alkaline Phosphatase 115 U/L (40-150); Anion Gap 13 mmol/L (10-20); BUN (Urea Nitrogen) 16 mg/dL (9.8-20.1); Bilirubin, Total 0.7 mg/dL (0.2-1.2); Calc. Creatinine Clearance 0 mL/min (70-130); Calcium 10.1 mg/dL (7.8-10.44); Carbon Dioxide 26 mmol/L (22-29); Chloride 104 mmol/L (98-107); Estimated GFR-MDRD 63; Globulin 3.8 g/dL (2.4-3.5); Glucose 122 mg/dL (70-105); Potassium 4.3 mmol/L (3.5-5.1); Protein, Total 8.4 g/dL (6.0-8.3); Sodium 139 mmol/L (136-145)
[2018-07-25 20:34] LABS: CKMB 0.7 ng/mL (0-6.6)
[2018-07-25] MEDS ORDERED: Morphine 2 MG/ML SYRINGE ONE (22:02)
[2018-07-25] MEDS ORDERED: Aspirin 325 MG TAB ONE (22:02)
[2018-07-25] MEDS ORDERED: Ondansetron ODT 4 MG TAB SL PRN (22:34)
[2018-07-25] MEDS ORDERED: Ondansetron PF 4 MG/2 ML Vial IVP PRN (22:34)
[2018-07-25] MEDS ORDERED: Acetaminophen 325 MG TAB PO PRN (22:34)
[2018-07-25 22:51] VITALS: BMI 30.9
[2018-07-25 23:57] LABS: CKMB 0.8 ng/mL (0-6.6)
[2018-07-26] MEDS ORDERED: PROVENTIL INHALER 6.7 G (200 INHALATIONS) INH PRN (03:34)
[2018-07-26] MEDS ORDERED: Nitroglycerin 0.4 MG TAB (25 Tab Bottle) SL PRN (03:45)
--- NOTE | 2018-07-26 04:15 | HP ---
PRIMARY CARE PROVIDER: None. CHIEF COMPLAINT: Chest pain. HISTORY OF PRESENT ILLNESS: Ms. Fink is a pleasant 58-year-old lady who was seen at [facility] on 07/26/2018. She was hospitalized at this facility in September 2017. She had cardiac catheterization at that time and was found to have moderate coronary artery disease. She was recommended medical management. She reports that she was also discharged on LifeVest. She also has a history of diabetes mellitus, but reports that she is no longer diabetic after taking good care of her diet. Over the last two days, she has had left-sided chest pain, sharp, 8/10, radiating to jaw, accompanied by diaphoresis and shortness of breath, worse with exertion, on and off. She came to the emergency room because of ongoing chest pain. REVIEW OF SYSTEMS: All other systems reviewed and found to be negative. PAST MEDICAL HISTORY: 1. Coronary artery disease. 2. Asthma. 3. CHF. 4. Hypertension. 5. Depression. PAST SURGICAL HISTORY: 1. Balloon angioplasty. 2. PTCA with stents. 3. Tonsillectomy. FAMILY HISTORY: Coronary artery disease on her mother's side of family. SOCIAL HISTORY: The patient reports occasional alcohol use. She denies tobacco use or recreational drug use. ALLERGIES: CODEINE AND LATEX. CURRENT MEDICATIONS: 1. Nitroglycerin p.r.n. 2. Proventil p.r.n. 3. Aspirin 81 mg daily. 4. Lipitor 10 mg daily. 5. Coreg 3.125 mg two times a day. 6. Famotidine 20 mg two times a day. 7. Lasix 20 mg daily. 8. Hydrocortisone cream as needed. 9. Lisinopril 10 mg two times a day. 10. Singulair 10 mg at bedtime. 11. Aldactone 25 mg daily. PHYSICAL EXAMINATION: GENERAL: On examination, Ms. Fink is awake and alert, not in acute distress. VITAL SIGNS: Blood pressure is 172/76, heart rate 60, respiratory rate 12, and oxygen saturation 94% on room air. She is afebrile. She is obese, with a BMI of 30.9. EYES: No scleral icterus. No conjunctival pallor. ENT: Moist mucosal membranes. No oropharyngeal erythema or exudates. NECK: Supple, nontender, trachea is midline. RESPIRATORY: Accessory muscles of breathing are not active. Chest wall movements are symmetric bilaterally. Lungs are clear to auscultation without wheeze, rhonchi, or crepitations. CARDIOVASCULAR: S1 and S2 are heard, regular. Peripheral pulses palpable. No carotid bruit. No pericardial rub. ABDOMEN: Soft and nontender. Bowel sounds heard. No hepatomegaly. No splenomegaly. NEUROLOGIC: Cranial nerves 2 through 12 are intact. Deep tendon reflexes 2+. MUSCULOSKELETAL: Power is 5/5 in all four extremities. SKIN: No rashes or subcutaneous nodules. LYMPHATIC: No cervical lymphadenopathy. PSYCHIATRIC: Normal mood, normal affect, the patient is oriented to person, place, and time. LABORATORY DATA: Ms. Fink's labs and investigations were reviewed. I reviewed her electrocardiogram, which shows normal sinus rhythm and left ventricular hypertrophy. I also reviewed her chest x-ray, which does not show any pulmonary infiltrates. She does have cardiomegaly. She has an unremarkable CBC, normal electrolytes, normal creatinine, elevated AST and elevated ALT of 57 each, normal total bilirubin, normal long-term postures, indeterminate troponin-I of 0.071, normal albumin and normal calcium. ASSESSMENT AND PLAN: Ms. Fink is a pleasant 58-year-old lady who was seen at [facility] on 07/26/2018. Her problem list includes: 1. Chest pain: Ms. Fink is presenting with chest pain, most likely cardiac given her history of known coronary artery disease. She will be admitted to the hospital for telemetry monitoring. We will consult Cardiology Service for opinion and help with management. She may need adjustment of her antianginal medications. 2. Transaminitis: Ms. Fink has isolated transaminitis. We will check CK level. We will also repeat LFTs. If she continues to have abnormal LFTs, her statin may need to be held. 3. Hypertension: We will resume the patient's home medications, monitor vital signs and titrate antihypertensives as needed. 4. Dyslipidemia: We will continue statin for now. If abnormal LFTs persist, statin may need to be held. Many thanks for allowing me to participate in the patient's care. Please feel free to contact me with any questions or concerns. LEVEL OF RISK: High. LEVEL OF COMPLEXITY: High. Job ID: [id number]
[2018-07-26] MEDS: Atorvastatin Calcium 10 MG TAB PO SCH (08:38)
[2018-07-26] MEDS: Acetaminophen 325 MG TAB PO PRN (08:38)
[2018-07-26] MEDS: Aspirin 81 mg Enteric Coated Tablet PO SCH (08:38)
[2018-07-26] MEDS: Carvedilol 3.125 MG TAB PO SCH ×2 (08:38→17:03)
[2018-07-26] MEDS: Furosemide 20 MG TAB PO SCH (08:38)
[2018-07-26] MEDS: Lisinopril 10 MG TAB PO SCH ×2 (08:38→20:41)
[2018-07-26] MEDS: Spironolactone 25 MG TAB PO SCH (08:38)
[2018-07-26] MEDS: Famotidine 20 MG TAB PO SCH ×2 (08:38→20:41)
[2018-07-26] MEDS: Enoxaparin Sodium 40 MG/0.4 ML SYRINGE SC SCH ×2 (08:39→11:46)
[2018-07-26 11:22] LABS: ALT (SGPT) 44 U/L (8-55); AST (SGOT) 39 U/L (5-34); Alkaline Phosphatase 95 U/L (40-150); Anion Gap 15 mmol/L (10-20); BUN (Urea Nitrogen) 19 mg/dL (9.8-20.1); Bilirubin, Total 0.3 mg/dL (0.2-1.2); Calc. Creatinine Clearance 78 mL/min (70-130); Calcium 9.1 mg/dL (7.8-10.44); Carbon Dioxide 22 mmol/L (22-29); Chloride 105 mmol/L (98-107); Estimated GFR-MDRD 64; Glucose 115 mg/dL (70-105); Potassium 3.5 mmol/L (3.5-5.1); Sodium 138 mmol/L (136-145)
[2018-07-26 11:38] LABS: Band 11 % (5-11); Eosinophils 2 % (0-10); Hemoglobin 12.8 g/dL (12.0-16.0); Lymphocytes 45 % (21-51); MDiff Complete? YES; Mean Corpuscular HGB CONC 35.3 g/dL (32.0-36.0); Mean Corpuscular Volume 85.1 fL (78.0-98.0); Mean Platelet Volume 9.7 fL (7.4-10.4); Monocytes 8 % (0-10); Neutrophil 33 % (42-75); Platelet Count 178 thou/uL (130-400); Red Blood Cell (RBC) Count 4.28 mill/uL (4.20-5.40); White Blood Cell (WBC) Count 4.9 thou/uL (4.8-10.8)
--- NOTE | 2018-07-26 13:55 | PDOC.PN ---
- Subjective Encounter Start Date: 07/26/18 Encounter Start Time: 13:45 -: Patient examined, reports she still has some mild substernal chest pain -: Reports she has not felt herself for the past 2 weeks, worse since Thur Eating lunch, denies abdominal pain, N/V/D, reports "hot flashes" - Objective Vital Signs & Weight: Vital Signs (12 hours) Temp Pulse Resp BP BP Pulse Ox 07/26/18 11:45 97.9 F 61 16 140/77 96 07/26/18 08:38 159/82 H 07/26/18 07:15 97.9 F 62 16 159/82 H 98 07/26/18 04:40 60 18 156/74 H 98 Weight Weight 71.804 kg I&O: 07/25/18 07/26/18 07/27/18 06:59 06:59 06:59 Intake Total 240 Balance 240 Result Diagrams: 07/26/18 01:38 07/26/18 01:38 Phys Exam - Physical Examination HEENT: PERRLA, moist MMs Neck: no nodes, no JVD Respiratory: no wheezing, clear to auscultation bilateral Cardiovascular: RRR Gastrointestinal: soft, non-tender Musculoskeletal: no edema, pulses present Neurological: non-focal, normal sensation Lymphatic: no nodes Psychiatric: normal affect, A&O x 3 Dx/Plan (1) CAD (coronary artery disease) Code(s): I25.10 - ATHSCL HEART DISEASE OF [place] CORONARY ARTERY W/O ANG PCTRS Status: Chronic Qualifiers: Coronary Disease-Associated Artery/Lesion type: unspecified vessel or lesion type [place] vs. transplanted heart: [place] heart Associated angina: with stable angina Qualified Code(s): I25.118 - Atherosclerotic heart disease of [place] coronary artery with other forms of angina pectoris Comment: Still has intermittent pain. Stress test showed small reversible ischemia. Shceduled for LHC. Continue NTG PRN for chest pain. (2) DM type 2 (diabetes mellitus, type 2) Status: Chronic Qualifiers: Diabetes mellitus assisted insulin use: without assisted use Diabetes mellitus complication status: with unspecified complications Qualified Code(s) : E11.8 - Type 2 diabetes mellitus with unspecified complications (3) HTN (hypertension) Code(s): I10 - ESSENTIAL (PRIMARY) HYPERTENSION Status: Chronic Qualifiers: Hypertension type: essential hypertension Comment: Controlled, at goal. Will continue home meds. - Plan cont current plan of care Will resume home meds, -: Awaiting Echo results and Cardiology consult -: Will monitor VS, recheck labs * .
--- NOTE | 2018-07-26 16:19 | CON ---
DATE OF CONSULTATION: PRIMARY CARE DOCTOR: Dr. Linda Aldana. PRIMARY SUPERVISOR LOGGING: Dr. Hyacinth Oconnor. REASON FOR CARDIOLOGY CONSULT: Chest pain. HISTORY OF PRESENT ILLNESS: Ms. Fink is a 58-year-old female with a significant history of chronic systolic heart failure with EF 15% to 20% in September 2017, coronary artery disease with multiple history of stent placement, asthma, hypertension, depression, and EtOH abuse. She was in the hospital in September 2017 for shortness of breath and was found to have a new onset of systolic heart failure with EF 15% to 20% . The patient was discharged with a LifeVest. However, because of her insurance, she has to return her LifeVest in March or April 2018. She had followed up with Dr. Oconnor' office one time after discharge, however, then due to the patient's insurance, she has not followed up with any doctor since September. She reports that she continued taking the medications as prescribed, except one medicine which she cannot recall, but she has not taken it for a couple of days. She started having worsening of cough with shortness of breath for the last one week. The patient started having chest pain, sharp in nature at the mediastinal area, which radiates to the back and to the neck for one week. For this reason, the patient decided to present to the emergency department for further evaluation and treatment. Today, she continues having intermittent sharp pain to mediastinal area, which increased with movement and palpation to the site. She also noticed having a trace to mild edema to the bilateral lower extremities. She has watched her fluid and salt intake, but she has not exercised regularly for more than six months. She continues to drink 2 to 4 beers every other week. The patient's echocardiogram was done in September 2017, which shows EF of 15% to 20%, severely increased left ventricular size, mild to moderate dilated left atrium, moderate mitral valve regurgitation, mild tricuspid regurgitation. The patient underwent cardiac catheterization in September 2017, with 50% stenosis to the proximal LAD, 30% in the mid left circumflex, and 60% in the right PLV. PAST MEDICAL HISTORY: 1. Coronary artery disease. 2. Chronic systolic heart failure, EF was 15% to 20%. 3. Bronchial asthma. 4. Hypertension. 5. Depression. PAST SURGICAL HISTORY: PTCA and stent placement in LAD in 2016, multiple PCIs, tonsillectomy. FAMILY HISTORY: There is significant coronary artery disease. Family history of coronary artery disease in maternal side. SOCIAL HISTORY: She is a former smoker. She drinks at least four beers every other week. She denied any illicit drug abuse. She is a . At this moment, she is unemployed. ALLERGIES: SHE IS ALLERGIC TO CODEINE AND LATEX. MEDICATIONS: 1. Hydrocortisone topical twice a day. 2. Famotidine (Pepcid) 20 mg twice a day. 3. Aspirin 81 mg once a day. 4. Albuterol 2 puffs every 4 hours as needed. 5. Atorvastatin 10 mg once a day. 6. Carvedilol 3.125 mg twice a day. 7. Lasix 20 mg once a day. 8. Lisinopril 10 mg once a day. 9. Singulair 10 mg once a day. 10. Spironolactone 25 mg once a day. REVIEW OF SYSTEMS: A 12-point review of systems negative unless otherwise mentioned. The patient complained of burning sensation to midsternal area early in the morning and late night. She is taking Tums, Maalox, which have not improved her symptoms. She had a diarrhea yesterday. Otherwise, she denies any constipation or diarrhea. PHYSICAL EXAMINATION: VITAL SIGNS: Blood pressure 159/82, temperature 97.9, pulse is 62 on room air, respiratory rate 16 on room air, and O2 saturation 98% on room air. GENERAL: The patient is alert and oriented x4. Not in acute distress. HEENT: Head is normocephalic and atraumatic. Eyes, extraocular muscle movement intact. ENT and mouth, oral and nasal mucosa moist without lesion. NECK: Supple. Normal range of motion. No JVD. RESPIRATORY: Clear to auscultate bilaterally, but diminished at the bases. No wheezing, rales, or rhonchi noted. CARDIOVASCULAR: Regular rate and rhythm. Normal S1 and S2. There is no S3 or S4. There is murmur to apical site 2+ pulses in the upper and lower extremities. No edema. Carotid pulses are present without bruit or thrill. ABDOMEN: Soft and nontender palpitate. Bowel sounds are present. SKIN: Warm and dry. No rash, bruise, or lesions noted. MUSCULOSKELETAL: The patient is able to move all extremities. The patient denies any claudication. NEUROLOGIC: The patient is nonfocal. Alert and oriented x4. PSYCHIATRIC: Mood is appropriate. LABORATORY DATA: WBC 5.3, hemoglobin 14.6, hematocrit 41.1, platelet 201. Sodium 138, potassium 3.5, BUN 19, creatinine 0.91, glucose 150, AST 39, ALT 44. Troponin 0.089, 0.073, 0.071. BNP 175. Chest x-ray shows cardiomegaly without any significant pulmonary edema. A 12-lead EKG at the ER shows sinus rhythm with heart rate of 78 with left ventricular hypertrophy. ASSESSMENT AND PLAN: 1. Atypical chest pain. The patient's chest pain is not from a cardiovascular etiology, possibly musculoskeletal in nature. The patient's cardiac cath in September 2017 shows within normal range. The patient's troponin is level within the normal range also. 2. Acute on chronic systolic heart failure. Although, the patient's BNP is a little bit over 100, the patient is complaining of shortness of breath and edema in the lower extremities, we would like to go ahead to order an echocardiogram for this patient since she has not had any echocardiogram done since September 2017. She has been on a beta reza, Lasix, lisinopril, and spironolactone. 3. Coronary artery disease with a history of multiple PCIs and stent placement. The patient's condition is stable at this moment. The patient has been on the beta reza, aspirin, and statin. 4. Hypertension. The patient's blood pressure is slightly elevated today, but gradually trending down at this moment. We would like to continue to monitor and adjust the patient's blood pressure medicine as appropriate. 5. Hyperlipidemia. The patient is on atorvastatin 10 mg once a day. 6. History of asthma. The patient's condition is stable with room air at this moment. The patient has albuterol p.r.n. ordered. 7. ETOH abuse. Alcohol, EtOH cessation education is given to the patient. Thank you for allowing the Cardiology Service to participate in the care of this patient. We will follow along the patient's care team and make further evaluation as appropriate. Job ID: [id number]
[2018-07-26] MEDS: Montelukast Sodium 10 mg Tablet PO SCH (20:41)
[2018-07-26] MEDS: Loperamide HCl 2 MG CAP PO PRN ×2 (20:41→22:49)
[2018-07-26] MEDS: Ondansetron PF 4 MG/2 ML Vial IVP PRN (20:41)
--- NOTE | 2018-07-26 22:35 | CON ---
DATE OF CONSULTATION: 07/26/2018 INDICATION FOR CONSULTATION: 58-year-old female with history of coronary artery disease and chest pain. HISTORY OF PRESENT ILLNESS: Please refer to the notes dictated by my nurse practitioner. We have discussed this patient in detail and I would agree with her assessment and plan. This is a 58-year-old female who has history of coronary artery disease, underwent angioplasty and stent placement in the left anterior descending artery as well as to the diagonal branch. She had some stenosis of the right coronary artery also in the past. This has not been intervened upon. Distally, she had more significant disease, followed by fractional flow reserve evaluation. She did not have any physiological flow-limiting disease on last cardiac catheterization. At this time, she again presents with chest discomfort, somewhat atypical and somewhat reproducible by palpation, but she has been under increased stress recently and says that she has been noticing increasing shortness of breath and chest discomfort. Her EKG does not show any acute changes. She does have evidence of left ventricular hypertrophy. However, her cardiac enzymes unfortunately were slightly indeterminate and certainly could have progression of coronary artery disease. Her last cardiac catheterization was in 2016, at which time, no further intervention was performed. Based on her chest pain and cardiac enzymes and history of coronary artery disease, I would suggest that she undergo a repeat Cardiolite study. If there are no changes from her previous Cardiolite study, then I would not pursue further cardiac catheterization at this time. She does have 2-vessel coronary artery disease as noted above with ostial stenosis of the first diagonal branch about 50% on her last cardiac catheterization in 2016. She also had this 70% stenosis in the posterior lateral branch of the right coronary artery and also another 30% to 50% stenosis of the right coronary artery and the last cardiac catheterization were not flow limiting. Should she have changes in the stress test than from what she has had in her last stress test, then I would suggest we repeat cardiac catheterization. Otherwise, we will continue to treat her medically. She has not been followed in the office due to financial problems. We will also obtain an echocardiogram and evaluate the echocardiogram to see if there has been any significant change in her left ventricular systolic function. She did have ejection fraction which was somewhat compromised in the past. I believe the ejection fraction was around 30% to 35%. PHYSICAL EXAMINATION: GENERAL: Reveals a well-developed, well-nourished, overweight female. VITAL SIGNS: Blood pressure 110/55. She is afebrile. Respiratory rate is 18, heart rate 65 and regular, O2 saturation 96%. HEENT: Shows the head to be normocephalic and atraumatic. Carotid pulses are present. There were no significant bruits. There is no JVD noted. Thyroid does not appear to be enlarged. CHEST: Clear to auscultation. CARDIOVASCULAR: Reveals a regular rate and rhythm. There is normal S1, S2. I cannot hear an S3 nor an S4. There were no significant murmurs, heaves, thrills, bruits or rubs. ABDOMEN: Obese with positive bowel sounds. EXTREMITIES: Show no clubbing, cyanosis, or edema. Pedal pulses are present. NEUROLOGIC: The patient appears to be intact. SKIN: Warm and dry. IMPRESSION: 1. Chest pain with abnormal cardiac enzymes in a patient with known coronary artery disease, status post angioplasty and stent placement. She will undergo a repeat stress test as well as echocardiogram and further recommendations will depend on the results of these studies. 2. History of noncompliance with followup. This is due to financial problems, she is unable to either take her medications or follow up in the office and she may need to be seen at [facility] or maybe can arrange some type of payment plan so that she can be seen on a routine basis rather than present to the emergency room when she has chest discomfort. As far as her other medical problems, we will continue to follow her also with you. She does have a history of hyperlipidemia as well as hypertension. She will continue her present medications at this time. She also has a history of depression and anxiety, and this also appears to be stable at this time. Last echocardiogram also was in April. If the ejection fraction has worsened, she may need to have a LifeVest at discharge. Her previous ejection fraction was 35% to 40%. Job ID: [id number]
[2018-07-27 06:52] LABS: #Eosinphils 0.1 thou/uL (0.0-0.7); #Lymphocytes 1.7 thou/uL (1.20-3.40); #Monocytes 0.3 thou/uL (0.11-0.59); #Neutrophils 2.8 thou/uL (1.40-6.50); %Basophils 0.5 % (0.0-1.0); %Monocytes 6.6 % (0.0-10.0); %Neutrophils 56.8 % (42.0-75.0); Hemoglobin 13.2 g/dL (12.0-16.0); Mean Corpuscular HGB CONC 35.1 g/dL (32.0-36.0); Mean Corpuscular Hemoglobin 29.8 pg (27.0-31.0); Mean Corpuscular Volume 84.9 fL (78.0-98.0); Mean Platelet Volume 9.5 fL (7.4-10.4); Platelet Count 193 thou/uL (130-400); RBC Distribution Width 11.9 % (11.5-14.5); Red Blood Cell (RBC) Count 4.41 mill/uL (4.20-5.40)
[2018-07-27 07:18] LABS: Anion Gap 14 mmol/L (10-20); BUN (Urea Nitrogen) 18 mg/dL (9.8-20.1); CK (CPK) 50 U/L (29-168); Calc. Creatinine Clearance 95 mL/min (70-130); Calcium 9.5 mg/dL (7.8-10.44); Carbon Dioxide 21 mmol/L (22-29); Chloride 107 mmol/L (98-107); Estimated GFR-MDRD 80; Glucose 100 mg/dL (70-105); Potassium 3.6 mmol/L (3.5-5.1); Sodium 138 mmol/L (136-145)
[2018-07-27 07:27] LABS: ALT (SGPT) 38 U/L (8-55); AST (SGOT) 28 U/L (5-34); Alkaline Phosphatase 94 U/L (40-150); Bilirubin, Direct 0.2 mg/dL (0.1-0.3); Bilirubin, Total 0.6 mg/dL (0.2-1.2); Protein, Total 7.4 g/dL (6.0-8.3)
[2018-07-27] MEDS ORDERED: Regadenoson 0.4 MG/5 ML SYRINGE ONE (09:25)
[2018-07-27] MEDS: Loperamide HCl 2 MG CAP PO PRN (09:51)
[2018-07-27] MEDS: Lisinopril 10 MG TAB PO SCH ×2 (09:52→21:38)
[2018-07-27] MEDS: Carvedilol 3.125 MG TAB PO SCH ×2 (09:52→16:51)
[2018-07-27] MEDS: Famotidine 20 MG TAB PO SCH ×3 (09:52→21:39)
[2018-07-27] MEDS: Aspirin 81 mg Enteric Coated Tablet PO SCH (13:27)
[2018-07-27] MEDS: Spironolactone 25 MG TAB PO SCH (13:27)
[2018-07-27] MEDS: Enoxaparin Sodium 40 MG/0.4 ML SYRINGE SC SCH (13:27)
[2018-07-27] MEDS: Furosemide 20 MG TAB PO SCH (13:27)
[2018-07-27] MEDS: Atorvastatin Calcium 10 MG TAB PO SCH (13:27)
--- NOTE | 2018-07-27 15:37 | NM ---
NUCLEAR MEDICINE CARDIAC STRESS TEST WITH EJECTION FRACTION: HISTORY: Coronary artery disease. COMPARISON: Stress test from 09/27/17. FINDINGS: Stress and rest performed after the intravenous administration of 33 and 11 mCi technetium-99m sestam ibi, respectively. There is old septal and inferolateral wall infarct. Ejection fraction is abnormally low at 25%. No ev idence of reversible ischemia. There is global hypokinesia. IMPRESSION: Old infarctions with global hypokinesia and low ejection fraction. POS: MIO
--- NOTE | 2018-07-27 17:48 | PDOC.PN ---
- Subjective Encounter Start Date: 07/27/18 Encounter Start Time: 17:47 Patient lying in bed, she reports some mild chest pain that is improved. She denies shortness of breath. No abdominal pain. No n/v/d. - Objective MAR Reviewed: Yes Vital Signs & Weight: Vital Signs (12 hours) Temp Pulse Resp BP BP Pulse Ox 07/27/18 15:37 98.3 F 69 14 113/59 L 96 07/27/18 09:52 114/55 L 07/27/18 07:52 98.2 F 61 16 114/55 L 97 Weight Weight 158 lb 4.8 oz I&O: 07/26/18 07/27/18 07/28/18 06:59 06:59 06:59 Intake Total 480 240 Balance 480 240 Result Diagrams: 07/27/18 06:15 07/27/18 06:15 Radiology Reviewed by me: Yes Phys Exam - Physical Examination Constitutional: NAD HEENT: PERRLA, moist MMs, oral pharynx no lesions Neck: no nodes, no JVD, supple Respiratory: no wheezing, no rales Cardiovascular: RRR, no significant murmur Gastrointestinal: soft, non-tender, no distention, positive bowel sounds Musculoskeletal: no edema, pulses present Neurological: non-focal, normal sensation, moves all 4 limbs Lymphatic: no nodes Psychiatric: normal affect, A&O x 3 Skin: no rash, normal turgor, cap refill <2 seconds Dx/Plan (1) CHF exacerbation Code(s): I50.9 - HEART FAILURE, UNSPECIFIED Status: Acute Qualifiers: Qualified Code(s): I50.23 - Acute on chronic systolic (congestive) heart failure Comment: ef of around 45% (2) CAD (coronary artery disease) Code(s): I25.10 - ATHSCL HEART DISEASE OF [place] CORONARY ARTERY W/O ANG PCTRS Status: Chronic Qualifiers: Coronary Disease-Associated Artery/Lesion type: unspecified vessel or lesion type [place] vs. transplanted heart: [place] heart Associated angina: with stable angina Qualified Code(s): I25.118 - Atherosclerotic heart disease of [place] coronary artery with other forms of angina pectoris Comment: Still has intermittent pain. Stress test showed small reversible ischemia. Shceduled for LHC. Continue NTG PRN for chest pain. (3) Cardiomyopathy Code(s): I42.9 - CARDIOMYOPATHY, UNSPECIFIED Status: Chronic (4) DM type 2 (diabetes mellitus, type 2) Status: Chronic Qualifiers: Diabetes mellitus [employer] insulin use: without assisted use Diabetes mellitus complication status: with unspecified complications Qualified Code(s) : E11.8 - Type 2 diabetes mellitus with unspecified complications (5) Dyslipidemia Code(s): E78.5 - HYPERLIPIDEMIA, UNSPECIFIED Status: Chronic Comment: Continue Atorvastatin. (6) HTN (hypertension) Code(s): I10 - ESSENTIAL (PRIMARY) HYPERTENSION Status: Chronic Qualifiers: Hypertension type: essential hypertension Comment: Controlled, at goal. Will continue home meds. (7) Chest pain Code(s): R07.9 - CHEST PAIN, UNSPECIFIED Status: Resolved - Plan cont current plan of care * Continue medical management * Cardiology services following * Severely reduced EF, EP services consulted * Continue to monitor VS, labs and further changes pending clinical findings.
[2018-07-27] MEDS: Montelukast Sodium 10 mg Tablet PO SCH (21:38)
[2018-07-28] MEDS: Atorvastatin Calcium 10 MG TAB PO SCH (09:10)
[2018-07-28] MEDS: Famotidine 20 MG TAB PO SCH ×2 (09:10→21:14)
[2018-07-28] MEDS: Aspirin 81 mg Enteric Coated Tablet PO SCH (09:10)
[2018-07-28] MEDS: Carvedilol 3.125 MG TAB PO SCH ×2 (09:10→16:46)
[2018-07-28] MEDS: Enoxaparin Sodium 40 MG/0.4 ML SYRINGE SC SCH (09:10)
[2018-07-28] MEDS: Spironolactone 25 MG TAB PO SCH (09:10)
[2018-07-28] MEDS: Lisinopril 10 MG TAB PO SCH ×2 (09:11→21:12)
[2018-07-28] MEDS: Furosemide 20 MG TAB PO SCH (09:11)
[2018-07-28] MEDS: Acetaminophen 325 MG TAB PO PRN ×3 (09:11→21:14)
[2018-07-28] MEDS ORDERED: Iopamidol 370 76% 50 ML VIAL FS ONE (09:33)
[2018-07-28] MEDS ORDERED: CEFAZOLIN 2 GM/50 ML BAG ONE (14:19)
[2018-07-28] MEDS ORDERED: Lidocaine 1% (PF) 30 ML VIAL ONE (14:20)
[2018-07-28] MEDS ORDERED: Midazolam HCl 2 mg/2 ml Vial ONE (14:57)
[2018-07-28] MEDS ORDERED: Meperidine HCl/PF 25 MG/ML VIAL ONE (14:58)
[2018-07-28] MEDS ORDERED: Propofol 500 MG/50 ML VIAL ONE (15:05)
--- NOTE | 2018-07-28 15:44 | PDOC.PN ---
- Subjective Encounter Start Date: 07/28/18 Encounter Start Time: 15:43 Patient lying in bed with several family members at bedside. No complaints at this time. Chest pain stable, no shortness of breath. No nausea or vomiting. EP recommending pacemaker. - Objective MAR Reviewed: Yes Vital Signs & Weight: Vital Signs (12 hours) Temp Pulse Resp BP BP Pulse Ox 07/28/18 12:06 97.8 F 63 16 133/81 96 07/28/18 09:11 133/62 07/28/18 07:58 98.0 F 70 20 133/62 97 Weight Weight 158 lb 4.8 oz I&O: 07/27/18 07/28/18 07/29/18 06:59 06:59 06:59 Intake Total 480 960 Balance 480 960 Result Diagrams: 07/27/18 06:15 07/27/18 06:15 Radiology Reviewed by me: Yes Phys Exam - Physical Examination Constitutional: NAD HEENT: PERRLA, moist MMs, oral pharynx no lesions Neck: no nodes, no JVD, supple Respiratory: no wheezing, no rales, no rhonchi, clear to auscultation bilateral Cardiovascular: RRR, no significant murmur Gastrointestinal: soft, non-tender, no distention, positive bowel sounds Musculoskeletal: no edema, pulses present Neurological: non-focal, normal sensation, moves all 4 limbs Lymphatic: no nodes Psychiatric: normal affect, A&O x 3 Skin: no rash, normal turgor, cap refill <2 seconds Dx/Plan (1) CHF exacerbation Code(s): I50.9 - HEART FAILURE, UNSPECIFIED Status: Acute Qualifiers: Qualified Code(s): I50.23 - Acute on chronic systolic (congestive) heart failure (2) CAD (coronary artery disease) Code(s): I25.10 - ATHSCL HEART DISEASE OF [place] CORONARY ARTERY W/O ANG PCTRS Status: Chronic Qualifiers: Coronary Disease-Associated Artery/Lesion type: unspecified vessel or lesion type [place] vs. transplanted heart: [place] heart Associated angina: with stable angina Qualified Code(s): I25.118 - Atherosclerotic heart disease of [place] coronary artery with other forms of angina pectoris (3) Cardiomyopathy Code(s): I42.9 - CARDIOMYOPATHY, UNSPECIFIED Status: Chronic (4) DM type 2 (diabetes mellitus, type 2) Status: Chronic Qualifiers: Diabetes mellitus local intermodal truck driver insulin use: without local intermodal truck driver use Diabetes mellitus complication status: with unspecified complications Qualified Code(s) : E11.8 - Type 2 diabetes mellitus with unspecified complications (5) Dyslipidemia Code(s): E78.5 - HYPERLIPIDEMIA, UNSPECIFIED Status: Chronic (6) HTN (hypertension) Code(s): I10 - ESSENTIAL (PRIMARY) HYPERTENSION Status: Chronic Qualifiers: Hypertension type: essential hypertension Comment: Controlled, at goal. Will continue home meds. (7) Chest pain Code(s): R07.9 - CHEST PAIN, UNSPECIFIED Status: Resolved - Plan cont current plan of care, plan discussed w/ family, DVT proph w/lovenox * Continue medical management * EP taking patient for pacemaker placement * Monitor VS and labs with further adjustments as needed * Likely discharged in the am
[2018-07-28] MEDS: Cephalexin 250 MG CAP PO SCH ×2 (18:00→23:47)
[2018-07-28] MEDS: traMADol HCl 50 MG TAB PO PRN ×2 (18:03→22:21)
[2018-07-28] MEDS: Montelukast Sodium 10 mg Tablet PO SCH (21:14)
[2018-07-29] MEDS: Acetaminophen 325 MG TAB PO PRN ×2 (02:07→11:58)
--- NOTE | 2018-07-29 02:47 | CON ---
DATE OF CONSULTATION: 07/28/2018 TYPE OF CONSULTATION: Electrophysiology. REFERRING PHYSICIAN: Hyacinth Oconnor MD. REASON FOR CONSULTATION: I am seeing Mrs. Fink at our [facility] Telemetry Floor as an electrophysiology consult and her problems are; 1. Chronic systolic congestive heart failure with ischemic cardiomyopathy. a. Remote history of angioplasty and stenting of the left anterior descending artery and diagonal branch. b. Stable coronary status on left heart catheterization in 2016 and nuclear stress test from 07/27/2018 reveals LVEF of 25%, old infarcts, but no reversible ischemia. c. Borderline troponin changes, not true myocardial infarction. 2. History of asthma. 3. History of hypertension. 4. History of depression. ALLERGIES: 1. CODEINE. 2. LATEX. MEDICATIONS: Include; 1. Nitroglycerin. 2. Proventil. 3. Aspirin. 4. Lipitor. 5. Coreg. 6. Famotidine. 7. Lasix. 8. Hydrocortisone. 9. Lisinopril. 10. Singulair. 11. Aldactone. SUBJECTIVE: Mrs. Fink has been admitted with symptoms of chest tightness sensation. She had coronary artery disease even back in September 2017, at which point she was discharged with the LifeVest. She has had no syncopal spells. Has occasional heart palpitations. No fever, chills, cough. No neurological deficits. REVIEW OF SYSTEMS: Rest of 12-point review of systems is otherwise unremarkable. PAST MEDICAL HISTORY: As above. PAST SURGICAL HISTORY: Significant for tonsillectomy in the past. SOCIAL HISTORY: She drinks alcohol only socially. Denies tobacco or drug abuse. She is and she has a 14-year-old daughter. OBJECTIVE: VITAL SIGNS: Blood pressure is 133/62, heart rate is 73, respiratory rate is 20, temperature 98 degrees Fahrenheit. GENERAL: Alert and oriented woman, in no apparent distress. NECK: Supple. Jugular veins not distended. CHEST: Coarse without crackles. HEART: Sounds are regular to rate and rhythm. No murmur or gallop. ABDOMEN: Benign. Bowel sounds positive. EXTREMITIES: Lower extremities without edema, clubbing or cyanosis. Pulses are adequate. NEUROLOGIC: The patient is nonfocal. MUSCULOSKELETAL: Without joint swelling or deformity. SKIN: Without rash. DATABASE: EKG is reviewed, revealing sinus rhythm, LVH, repolarization changes, narrow QRS. Nuclear stress test as above. 2D echo was suggestive of LVEF 35% to 40%, moderate mitral regurgitation. Telemetry strips reviewed, revealing sinus rhythm, occasional PVCs. No ventricular tachycardia. LABORATORY DATA: Lab work; sodium 138, potassium 3.6, BUN is 18, creatinine 0.75. AST, ALT initially 57/57 and now is 28/38. Troponin I's are 0.089, 0.073 and 0.071, likely demand ischemia present. ASSESSMENT AND PLAN: 1. Mrs. Fink is a pleasant 58-year-old woman with a prior history of ischemic cardiomyopathy, who has been on adequate medical management, but still suboptimal recovery of her LV function is seen. She continues to have severely reduced LVEF of 25%, as per nuclear stress test results. At this point, there is no evidence of true acute myocardial infarction present, just demand ischemia and it is reasonable to consider her to supply with a prophylactic ICD. Pros and cons of this approach have been discussed, she understands the concept of primary prophylaxis of sudden cardiac . We also discussed the risks including infection, bleeding, pneumothorax, tamponade, lead dislodgement, device malfunctions and recalls. She understands and willing to proceed. We will schedule her for near date. 2. Congestive heart failure, currently well compensated. 3. Coronary artery disease without angina anymore. Continue current management as per Dr. Oconnor. Job ID: [id number]
[2018-07-29] MEDS: Cephalexin 250 MG CAP PO SCH ×3 (05:29→17:22)
[2018-07-29] MEDS: traMADol HCl 50 MG TAB PO PRN ×3 (05:30→17:22)
--- NOTE | 2018-07-29 07:59 | RAD ---
PORTABLE UPRIGHT FRONTAL CHEST RADIOGRAPH: Date: 07-29-18 Comparison: 07-25-18 History: Evaluate chest following AICD. FINDINGS: Single lead left subclavian AICD present, distal tip overlying the region of the right atrium. No pne umothorax, pleural fluid, focal consolidation or alveolar edema. Heart and mediastinal contours are s table. IMPRESSION: No acute findings. POS: [facility]
[2018-07-29] MEDS: Spironolactone 25 MG TAB PO SCH (08:47)
[2018-07-29] MEDS: Carvedilol 3.125 MG TAB PO SCH ×2 (08:47→17:23)
[2018-07-29] MEDS: Aspirin 81 mg Enteric Coated Tablet PO SCH (08:47)
[2018-07-29] MEDS: Furosemide 20 MG TAB PO SCH (08:47)
[2018-07-29] MEDS: Atorvastatin Calcium 10 MG TAB PO SCH (08:48)
[2018-07-29] MEDS: Famotidine 20 MG TAB PO SCH ×2 (08:48→21:58)
[2018-07-29] MEDS: Lisinopril 10 MG TAB PO SCH ×2 (08:48→21:58)
[2018-07-29] MEDS: Ondansetron PF 4 MG/2 ML Vial IVP PRN ×2 (09:48→17:29)
--- NOTE | 2018-07-29 13:38 | PDOC.CTH ---
Cardiology Progress Note - Subjective EP PROGRESS NOTE: 07/29/18 Seen and evaluated for cardiomyopathy s/p ICD yesterday. No fever/chills. CXR and ICD check stable today. She feels tired and has some malaise today. - Objective Vital Signs Temp Pulse Resp BP BP Pulse Ox 07/29/18 11:55 98.2 F 66 16 150/68 H 98 07/29/18 08:48 115/58 L 07/29/18 08:00 98.1 F 61 16 138/65 95 07/29/18 03:21 98.0 F 59 L 18 126/58 L 97 Weight 164 lb 4.8 oz 07/28/18 07/29/18 07/30/18 06:59 06:59 06:59 Intake Total 960 1020 Output Total 400 Balance 960 620 - Physical Examination General/Neuro: alert & oriented x3, NAD Neck: carotid US brisk, no JVD present Lungs: CTA, unlabored respirations Heart: PMI normal, RRR Abdomen: NT/ND, soft - Telemetry Telemetry Rhythm: SR - Labs Result Diagrams: 07/27/18 06:15 07/27/18 06:15 Troponin/CKMB CK-MB (CK-2) 0.8 ng/mL (0-6.6) 07/25/18 23:07 Troponin I 0.071 ng/mL (< 0.028) H 07/26/18 01:38 - Assessment/Plan 1. Ischemic cardiomyopathy -EF 25% -s/p S-ICD placed 07/28/18. CXR and device check stable today. Incision C/D/I. Edges well approximated. No drainage, redness, or streaking. 2. CHF, well compensated 3. CAD Continue keflex as prescribed x 7 days post implants. Wound/device check in [facility] in 7-10 days. OK for DC by EP
[2018-07-29] MEDS: Montelukast Sodium 10 mg Tablet PO SCH (21:59)
[2018-07-30] MEDS: Cephalexin 250 MG CAP PO SCH ×3 (00:12→12:57)
[2018-07-30] MEDS: traMADol HCl 50 MG TAB PO PRN ×3 (00:14→13:11)
[2018-07-30] MEDS: Atorvastatin Calcium 10 MG TAB PO SCH (08:50)
[2018-07-30] MEDS: Famotidine 20 MG TAB PO SCH (08:50)
[2018-07-30] MEDS: Lisinopril 10 MG TAB PO SCH (08:50)
[2018-07-30] MEDS: Furosemide 20 MG TAB PO SCH (08:51)
[2018-07-30] MEDS: Carvedilol 3.125 MG TAB PO SCH (08:51)
[2018-07-30] MEDS: Aspirin 81 mg Enteric Coated Tablet PO SCH (08:51)
[2018-07-30] MEDS: Spironolactone 25 MG TAB PO SCH (08:51)
[2018-07-30] MEDS: Acetaminophen 325 MG TAB PO PRN (08:58)
[2018-07-30 12:33] VITALS: TEMP 98.6
--- NOTE | 2018-07-30 13:17 | PDOC.CTH ---
Cardiology Progress Note - Subjective The pt seen and examined. No overnight events. No cardiac complaints. - Objective Vital Signs Temp Pulse Resp BP BP Pulse Ox 07/30/18 12:05 98.6 F 61 16 129/58 L 94 L 07/30/18 08:50 133/64 07/30/18 07:47 98.2 F 61 16 129/66 97 Weight 164 lb 4.8 oz 07/29/18 07/30/18 07/31/18 06:59 06:59 06:59 Intake Total 1020 480 Output Total 400 600 Balance 620 -120 - Physical Examination General/Neuro: alert & oriented x3 Neck: no JVD present Lungs: CTA Heart: RRR Abdomen: soft Extremities: other: (No edema) - Telemetry Telemetry Rhythm: SR - Labs Result Diagrams: 07/27/18 06:15 07/27/18 06:15 Troponin/CKMB CK-MB (CK-2) 0.8 ng/mL (0-6.6) 07/25/18 23:07 Troponin I 0.071 ng/mL (< 0.028) H 07/26/18 01:38 - Assessment/Plan 1. Ischemic CMY with EF 25% and S/p AICD placed 07/28/18. 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 2. Systolic HF - stable 3. CAD - stable 4. HTN - stable 5. Hyperlipidemia - stable 6. DM type 2 7. ETOH abuse - strongly recommend ETOH cessation to the pt. She voiced understanding. DANIKA reviewed Review of Systems - Review of Systems Constitutional: reports: no symptoms reported EENTM: reports: no symptoms reported Respiratory: reports: no symptoms reported Cardiac (ROS): reports: no symptoms reported ABD/GI: reports: no symptoms reported : reports: no symptoms reported Musculoskeletal: reports: no symptoms reported Skin: reports: no symptoms reported
[2018-07-30 14:24] VITALS: BP 135/62
== END 2018-07-30 13:27 | disposition home or self-care (01) | DRG 245 ==
LOC: ERS 18:48 → 2SW 20:36 → OBSVTOIN 07-28 13:21
PROVIDERS: ADMIT Family Medicine; ATTEND Family Medicine
PROC: 0JH608Z Insertion of Defibrillator Generator into Chest Subcutaneous Tissue and Fascia, Open Approach (ICD-10-PCS; principal; 2018-07-28)
PROC: 0JH60PZ Insertion of Cardiac Rhythm Related Device into Chest Subcutaneous Tissue and Fascia, Open Approach (ICD-10-PCS; 2018-07-28)
DX: I11.0 Hypertensive heart disease with heart failure (principal); I24.8 Other forms of acute ischemic heart disease; I25.5 Ischemic cardiomyopathy; I50.23 Acute on chronic systolic (congestive) heart failure; R07.89 Other chest pain; I25.10 Atherosclerotic heart disease of native coronary artery without angina pectoris; J45.909 Unspecified asthma, uncomplicated; E78.5 Hyperlipidemia, unspecified; F32.9 Major depressive disorder, single episode, unspecified; F10.10 Alcohol abuse, uncomplicated; Z91.19 Patient's noncompliance with other medical treatment and regimen; Z88.5 Allergy status to narcotic agent; Z91.040 Latex allergy status; Z79.82 Long term (current) use of aspirin; Z79.899 Other long term (current) drug therapy; Z95.5 Presence of coronary angioplasty implant and graft
CPT/HCPCS: 33249; 36005; 36415; 71045; 75820; 78452; 80048; 80053; 80076; 82550; 82553; 83880; 84484; 85025; 90471; 90662; 90686; 93005; 93017; 93306; 93641; 93798; 94760; 96374; A9500; C1722; C1777; G0008; J1650; J2001; J2175; J2250; J2270; J2405; J2704; J2785; J3490

== ENCOUNTER 2019-01-22 13:07 | Emergency (ER) | payer SELFPAY ==
--- NOTE | 2019-01-22 13:38 | RAD ---
XR Chest Pa Lat STANDARD History: Cough and shortness of breath Comparison: Radiograph July 29, 2018 Findings: Lungs are clear. Multiple coronary artery stents. Single-lead defibrillator. Right upper qu adrant surgical clips. Calcified granuloma left upper lobe. There appears to be intrahepatic biliary gas. Calcified granuloma projects over the left upper quadra nt of the abdomen. Impression: No acute intrathoracic abnormality.
[2019-01-22] MEDS ORDERED: Albuterol Sulfate 2.5 mg/0.5 ml Neb ONE ×2 (14:02→14:51)
[2019-01-22 14:27] LABS: #Eosinphils 0.2 thou/uL (0.0-0.7); #Lymphocytes 1.9 thou/uL (1.20-3.40); #Monocytes 0.3 thou/uL (0.11-0.59); #Neutrophils 3.3 thou/uL (1.40-6.50); %Basophils 0.2 % (0.0-1.0); %Lymphocytes 33.4 % (21.0-51.0); %Monocytes 5.9 % (0.0-10.0); %Neutrophils 56.6 % (42.0-75.0); Hemoglobin 12.9 g/dL (12.0-16.0); Mean Corpuscular HGB CONC 35.9 g/dL (32.0-36.0); Mean Corpuscular Hemoglobin 30.1 pg (27.0-31.0); Mean Corpuscular Volume 83.8 fL (78.0-98.0); Mean Platelet Volume 9.6 fL (7.4-10.4); Platelet Count 181 thou/uL (130-400); RBC Distribution Width 11.7 % (11.5-14.5); Red Blood Cell (RBC) Count 4.29 mill/uL (4.20-5.40); White Blood Cell (WBC) Count 5.8 thou/uL (4.8-10.8)
[2019-01-22 14:39] LABS: ALT (SGPT) 21 U/L (8-55); AST (SGOT) 21 U/L (5-34); Albumin 4.2 g/dL (3.5-5.0); Alkaline Phosphatase 104 U/L (40-150); Anion Gap 14 mmol/L (10-20); BUN (Urea Nitrogen) 12 mg/dL (9.8-20.1); Bilirubin, Total 0.4 mg/dL (0.2-1.2); CK (CPK) 103 U/L (29-168); Calc. Creatinine Clearance 0 mL/min (70-130); Calcium 9.3 mg/dL (7.8-10.44); Carbon Dioxide 24 mmol/L (22-29); Chloride 107 mmol/L (98-107); Estimated GFR-MDRD Greater than 90; Glucose 130 mg/dL (70-105); Potassium 3.5 mmol/L (3.5-5.1); Protein, Total 7.2 g/dL (6.0-8.3); Sodium 141 mmol/L (136-145)
[2019-01-22] MEDS ORDERED: predniSONE 20 MG TAB ONE (16:08)
[2019-01-22] MEDS ORDERED: Azithromycin 250 MG TAB ONE (16:08)
--- NOTE | 2019-01-24 20:39 | EKG ---
Test Reason : Blood Pressure : / mmHG Vent. Rate : 080 BPM Atrial Rate : 080 BPM P-R Int : 120 ms QRS Dur : 090 ms QT Int : 430 ms P-R-T Axes : 000 015 031 degrees QTc Int : 495 ms Normal sinus rhythm Left ventricular hypertrophy Nonspecific ST abnormality Prolonged QT Abnormal ECG Confirmed by EDWIN JONES, NIEVES Silva ([id number]), city editor MERRILL CAMARENA ([id number]) on 01/24/2019 8:39:02 PM Referred By: Confirmed By:NIEVES PINEDA MD
== END 2019-01-22 16:17 | disposition home or self-care (01) ==
LOC: ERS 13:07
DX: J40 Bronchitis, not specified as acute or chronic (principal); I25.10 Atherosclerotic heart disease of native coronary artery without angina pectoris; E78.5 Hyperlipidemia, unspecified; F41.9 Anxiety disorder, unspecified; F32.9 Major depressive disorder, single episode, unspecified; I11.0 Hypertensive heart disease with heart failure; I50.9 Heart failure, unspecified; Z79.899 Other long term (current) drug therapy; Z79.82 Long term (current) use of aspirin
CPT/HCPCS: 36415; 71046; 80053; 82550; 83880; 84484; 85025; 93005; 94640; J7512; J7611; J7620

== ENCOUNTER 2019-05-21 08:27 | Emergency (ER) | payer SELFPAY ==
[2019-05-21] MEDS ORDERED: Ondansetron ODT 4 MG TAB ONE (08:46)
--- NOTE | 2019-05-21 09:37 | RAD ---
XR Chest 1 View Portable HISTORY: Cough, fever, sore throat COMPARISON: 01/22/2019 FINDINGS: The heart size is normal. Left-sided pacemaker device remains in place. The lungs are well expanded without focal areas of consolidation, pneumothorax or pleural effusions. IMPRESSION: No radiographic evidence of acute cardiopulmonary process.
== END 2019-05-21 09:35 | disposition home or self-care (01) ==
LOC: ERS 08:27
DX: J20.8 Acute bronchitis due to other specified organisms (principal); F41.9 Anxiety disorder, unspecified; F32.9 Major depressive disorder, single episode, unspecified; I11.0 Hypertensive heart disease with heart failure; I50.9 Heart failure, unspecified; R73.03 Prediabetes; E78.00 Pure hypercholesterolemia, unspecified; E78.5 Hyperlipidemia, unspecified; I25.10 Atherosclerotic heart disease of native coronary artery without angina pectoris; Z79.899 Other long term (current) drug therapy; Z79.891 Long term (current) use of opiate analgesic
CPT/HCPCS: 71045; 94760; Q0162

== ENCOUNTER 2019-12-13 02:47 | Emergency (ER) | payer BC, SELFPAY ==
[2019-12-13] MEDS ORDERED: Adacel (T-DAP) 0.5 ML SYRINGE ONE (03:53)
[2019-12-13] MEDS ORDERED: Acetaminophen 500 MG TAB ONE (03:54)
== END 2019-12-13 04:19 | disposition home or self-care (01) ==
LOC: ERS 02:47
DX: S80.812A Abrasion, left lower leg, initial encounter (principal); S80.811A Abrasion, right lower leg, initial encounter; I25.10 Atherosclerotic heart disease of native coronary artery without angina pectoris; E78.5 Hyperlipidemia, unspecified; E78.00 Pure hypercholesterolemia, unspecified; R73.03 Prediabetes; I11.0 Hypertensive heart disease with heart failure; I50.9 Heart failure, unspecified; F41.9 Anxiety disorder, unspecified; F32.9 Major depressive disorder, single episode, unspecified; Z79.891 Long term (current) use of opiate analgesic; Z79.899 Other long term (current) drug therapy; Y04.0XXA Assault by unarmed brawl or fight, initial encounter
CPT/HCPCS: 90471; 90715

== ENCOUNTER 2020-04-17 12:43 | Emergency (ER) | payer BC ==
--- NOTE | 2020-04-17 13:26 | ULT ---
RIGHT LOWER EXTREMITY DOPPLER VENOUS ULTRASOUND PROVIDED CLINICAL HISTORY: Right lower extremity pain TECHNIQUE: Grayscale and color Doppler sonography with spectral analysis was performed of the right common femor al, femoral, popliteal, posterior tibial, greater saphenous and profunda femoral veins. FINDINGS: There is normal compression, flow and augmentation seen within the deep venous structures o f the right lower extremity. IMPRESSION: No sonographic evidence for right lower extremity deep venous thrombosis.
== END 2020-04-17 14:03 | disposition home or self-care (01) ==
LOC: ERS 12:43
DX: M79.89 Other specified soft tissue disorders (principal); I11.0 Hypertensive heart disease with heart failure; I50.9 Heart failure, unspecified; I25.10 Atherosclerotic heart disease of native coronary artery without angina pectoris; E78.5 Hyperlipidemia, unspecified; E78.00 Pure hypercholesterolemia, unspecified; F41.9 Anxiety disorder, unspecified; F32.9 Major depressive disorder, single episode, unspecified; Z79.82 Long term (current) use of aspirin; Z79.899 Other long term (current) drug therapy

== ENCOUNTER 2021-10-08 13:55 | Inpatient (IN) | payer BC, OTHER, SELFPAY ==
[2021-10-08] MEDS ORDERED: Aspirin Chewable 81 MG TAB ONE (14:31)
[2021-10-08] MEDS ORDERED: Ibuprofen 200 MG TAB ONE (14:31)
[2021-10-08 14:34] LABS: #Eosinphils 0.1 thou/uL (0.0-0.7); #Lymphocytes 1.3 thou/uL (1.20-3.40); #Monocytes 0.5 thou/uL (0.11-0.59); #Neutrophils 6.8 thou/uL (1.40-6.50); %Eosinophils 0.7 % (0.0-10.0); %Lymphocytes 14.7 % (21.0-51.0); %Monocytes 5.5 % (0.0-10.0); Hemoglobin 13.2 g/dL (12.0-16.0); Mean Corpuscular HGB CONC 35.2 g/dL (32.0-36.0); Mean Corpuscular Hemoglobin 30.8 pg (27.0-31.0); Mean Corpuscular Volume 87.4 fL (78.0-98.0); Mean Platelet Volume 9.2 fL (7.4-10.4); Platelet Count 176 thou/uL (130-400); RBC Distribution Width 12.1 % (11.5-14.5); Red Blood Cell (RBC) Count 4.29 mill/uL (4.20-5.40); White Blood Cell (WBC) Count 8.6 thou/uL (4.8-10.8)
[2021-10-08 14:57] LABS: ALT (SGPT) 29 U/L (8-55); AST (SGOT) 18 U/L (5-34); Albumin 4.2 g/dL (3.5-5.0); Alkaline Phosphatase 96 U/L (40-110); Anion Gap 14 mmol/L (10-20); BUN (Urea Nitrogen) 14 mg/dL (9.8-20.1); Bilirubin, Total 1.3 mg/dL (0.2-1.2); Calc. Creatinine Clearance 0 mL/min (70-130); Calcium 9.1 mg/dL (7.8-10.44); Carbon Dioxide 22 mmol/L (22-29); Chloride 105 mmol/L (98-107); Globulin 3.1 g/dL (2.4-3.5); Glucose 122 mg/dL (70-105); Lipase 47 U/L (8-78); Potassium 3.7 mmol/L (3.5-5.1); Protein, Total 7.3 g/dL (6.0-8.3); Sodium 137 mmol/L (136-145)
[2021-10-08 15:19] LABS: CKMB 0.6 ng/mL (0-6.6)
[2021-10-08] MEDS ORDERED: Acetaminophen 650 MG Suppository PR PRN (15:31)
[2021-10-08] MEDS ORDERED: Ondansetron ODT 4 MG TAB PO PRN (15:31)
[2021-10-08] MEDS ORDERED: Ondansetron PF 4 MG/2 ML Vial IVP PRN (15:31)
[2021-10-08] MEDS ORDERED: Melatonin 3 MG TAB PO PRN (15:35)
[2021-10-08] MEDS ORDERED: Lorazepam 0.5 MG TAB PO PRN (15:41)
[2021-10-08] MEDS ORDERED: Aspirin 325 MG TAB PO SCH (15:45)
[2021-10-08] MEDS ORDERED: Furosemide 40 MG/4 ML VIAL SLOW IVP SCH (16:15)
[2021-10-08 16:42] LABS: Magnesium 1.6 mg/dL (1.6-2.6)
[2021-10-08 18:08] VITALS: BMI 32.5
[2021-10-08] MEDS: Carvedilol 3.125 MG TAB PO SCH (18:31)
[2021-10-08] MEDS: Nitroglycerin 2% Ointment 1 INCH/1 GM Packet TOP SCH (18:44)
[2021-10-08] MEDS: Acetaminophen 325 MG TAB PO PRN (18:45)
[2021-10-08] MEDS ORDERED: Magnesium 2 GM/50 ML(in water) 2 GM in Premix Bag 1 BAG IVPB SCH (20:00)
[2021-10-08] MEDS: Montelukast Sodium 10 mg Tablet PO SCH (20:30)
[2021-10-08 20:56] LABS: Troponin I 0.027 ng/mL (< 0.028)
[2021-10-08] MEDS ORDERED: Atorvastatin Calcium 10 MG TAB PO SCH (21:00)
[2021-10-08 21:08] LABS: SARS-CoV-2 PCR by NAA Not Detected (NotDetected)
[2021-10-09] MEDS: Lisinopril 10 MG TAB PO SCH ×3 (01:42→20:10)
[2021-10-09] MEDS: Nitroglycerin 2% Ointment 1 INCH/1 GM Packet TOP SCH ×3 (01:43→20:13)
[2021-10-09 05:15] LABS: #Eosinphils 0.1 thou/uL (0.0-0.7); #Lymphocytes 1.1 thou/uL (1.20-3.40); #Monocytes 0.5 thou/uL (0.11-0.59); #Neutrophils 4.6 thou/uL (1.40-6.50); %Basophils 0.3 % (0.0-1.0); %Eosinophils 1.3 % (0.0-10.0); %Lymphocytes 18.1 % (21.0-51.0); %Monocytes 7.5 % (0.0-10.0); %Neutrophils 72.9 % (42.0-75.0); Hemoglobin 12.2 g/dL (12.0-16.0); Mean Corpuscular HGB CONC 35.4 g/dL (32.0-36.0); Mean Corpuscular Hemoglobin 31.3 pg (27.0-31.0); Mean Corpuscular Volume 88.3 fL (78.0-98.0); Mean Platelet Volume 9.1 fL (7.4-10.4); Platelet Count 155 thou/uL (130-400); RBC Distribution Width 12.1 % (11.5-14.5); Red Blood Cell (RBC) Count 3.89 mill/uL (4.20-5.40); White Blood Cell (WBC) Count 6.3 thou/uL (4.8-10.8)
[2021-10-09] MEDS: Acetaminophen 325 MG TAB PO PRN ×2 (05:37→13:16)
[2021-10-09 05:38] LABS: Anion Gap 12 mmol/L (10-20); BUN (Urea Nitrogen) 16 mg/dL (9.8-20.1); Calc. Creatinine Clearance 112 mL/min (70-130); Calcium 8.5 mg/dL (7.8-10.44); Carbon Dioxide 23 mmol/L (22-29); Cardiac Risk 3.5 (Less than 4.5); Chloride 106 mmol/L (98-107); Cholesterol 157 mg/dl (< 200 Desired); Glucose 131 mg/dL (70-105); HDL Cholesterol 45 mg/dL (>60 Neg Risk); LDL Cholesterol, Calculated 88 mg/dL; Potassium 3.3 mmol/L (3.5-5.1); Sodium 138 mmol/L (136-145); Triglycerides 121 mg/dL (Less than 150)
[2021-10-09] MEDS ORDERED: Potassium Chloride 20 MEQ TAB PO SCH (08:00)
[2021-10-09] MEDS: Aspirin Chewable 81 MG TAB PO SCH (08:59)
[2021-10-09] MEDS ORDERED: Regadenoson 0.4 MG/5 ML SYRINGE ONE (09:13)
[2021-10-09] MEDS: Carvedilol 3.125 MG TAB PO SCH ×2 (13:15→16:01)
[2021-10-09] MEDS: Spironolactone 25 MG TAB PO SCH (13:16)
[2021-10-09] MEDS: traMADol HCl 50 MG TAB PO PRN ×2 (14:36→22:05)
[2021-10-09] MEDS ORDERED: Enoxaparin Sodium 80 MG/0.8 ML SYRINGE SC SCH (15:15)
[2021-10-09] MEDS: Atorvastatin Calcium 40 MG TAB PO SCH (20:10)
[2021-10-09] MEDS: Montelukast Sodium 10 mg Tablet PO SCH (20:12)
[2021-10-10 04:58] LABS: #Eosinphils 0.1 thou/uL (0.0-0.7); #Lymphocytes 1.6 thou/uL (1.20-3.40); #Monocytes 0.4 thou/uL (0.11-0.59); #Neutrophils 2.5 thou/uL (1.40-6.50); %Basophils 0.6 % (0.0-1.0); %Eosinophils 1.5 % (0.0-10.0); %Lymphocytes 35.4 % (21.0-51.0); %Neutrophils 53.5 % (42.0-75.0); Hemoglobin 11.3 g/dL (12.0-16.0); Mean Corpuscular HGB CONC 32.7 g/dL (32.0-36.0); Mean Corpuscular Hemoglobin 29.1 pg (27.0-31.0); Mean Corpuscular Volume 88.9 fL (78.0-98.0); Platelet Count 157 thou/uL (130-400); RBC Distribution Width 12.2 % (11.5-14.5); Red Blood Cell (RBC) Count 3.88 mill/uL (4.20-5.40); White Blood Cell (WBC) Count 4.6 thou/uL (4.8-10.8)
[2021-10-10 05:23] LABS: Anion Gap 10 mmol/L (10-20); BUN (Urea Nitrogen) 17 mg/dL (9.8-20.1); Calc. Creatinine Clearance 114 mL/min (70-130); Calcium 8.7 mg/dL (7.8-10.44); Carbon Dioxide 24 mmol/L (22-29); Chloride 107 mmol/L (98-107); Glucose 111 mg/dL (70-105); Sodium 137 mmol/L (136-145)
[2021-10-10] MEDS: Nitroglycerin 2% Ointment 1 INCH/1 GM Packet TOP SCH ×3 (06:00→21:43)
[2021-10-10] MEDS ORDERED: Communication Order-Pharmacy FS SCH (09:00)
[2021-10-10] MEDS ORDERED: Iopamidol 370 76% 100 ML VIAL ONE (09:28)
[2021-10-10] MEDS ORDERED: Iopamidol 370 76% 50 ML VIAL FS ONE (09:28)
[2021-10-10] MEDS: Carvedilol 3.125 MG TAB PO SCH ×2 (09:53→18:27)
[2021-10-10] MEDS: Spironolactone 25 MG TAB PO SCH (09:53)
[2021-10-10] MEDS: Lisinopril 10 MG TAB PO SCH ×2 (09:53→21:31)
[2021-10-10] MEDS: Aspirin Chewable 81 MG TAB PO SCH (09:53)
[2021-10-10] MEDS ORDERED: Lidocaine 1% (PF) 30 ML VIAL ONE (11:04)
[2021-10-10] MEDS ORDERED: Fentanyl 100 MCG/2 ML VIAL ONE (11:49)
[2021-10-10] MEDS ORDERED: Midazolam HCl 2 mg/2 ml Vial ONE (11:49)
[2021-10-10] MEDS ORDERED: Ondansetron PF 4 MG/2 ML Vial ONE (12:44)
[2021-10-10] MEDS ORDERED: Heparin 10,000 UNITS/ 10 ML VIAL ONE (12:44)
[2021-10-10] MEDS ORDERED: Atropine Sulfate 1 mg/10 ml Syringe ONE (12:44)
[2021-10-10] MEDS ORDERED: Nitroglycerin 100MG/250ML BOT 250 ML ONE (13:10)
[2021-10-10] MEDS ORDERED: TICAGRELOR 90 MG TABLET ONE (13:32)
[2021-10-10] MEDS ORDERED: Morphine 4 MG/ML VIAL ONE ×2 (14:29→17:00)
[2021-10-10] MEDS ORDERED: TICAGRELOR 90 MG TABLET PO SCH (14:29)
[2021-10-10] MEDS ORDERED: Nitroglycerin 0.4 MG TAB (25 Tab Bottle) SL PRN (14:29)
[2021-10-10] MEDS: Atorvastatin Calcium 40 MG TAB PO SCH (21:31)
[2021-10-10] MEDS: Montelukast Sodium 10 mg Tablet PO SCH (21:31)
[2021-10-10] MEDS: TICAGRELOR 90 MG TABLET PO SCH (21:31)
[2021-10-11] MEDS ORDERED: hydrOXYzine 25 MG TAB PO SCH (01:30)
[2021-10-11 05:00] LABS: #Eosinphils 0.1 thou/uL (0.0-0.7); #Lymphocytes 1.2 thou/uL (1.20-3.40); #Monocytes 0.3 thou/uL (0.11-0.59); #Neutrophils 3.9 thou/uL (1.40-6.50); %Basophils 0.2 % (0.0-1.0); %Eosinophils 1.1 % (0.0-10.0); %Lymphocytes 21.6 % (21.0-51.0); Hemoglobin 11.2 g/dL (12.0-16.0); Mean Corpuscular HGB CONC 33.5 g/dL (32.0-36.0); Mean Corpuscular Hemoglobin 29.5 pg (27.0-31.0); Mean Corpuscular Volume 87.9 fL (78.0-98.0); Mean Platelet Volume 9.1 fL (7.4-10.4); Platelet Count 165 thou/uL (130-400); RBC Distribution Width 12.2 % (11.5-14.5); White Blood Cell (WBC) Count 5.5 thou/uL (4.8-10.8)
[2021-10-11 05:27] LABS: ALT (SGPT) 21 U/L (8-55); AST (SGOT) 18 U/L (5-34); Albumin 3.7 g/dL (3.5-5.0); Alkaline Phosphatase 94 U/L (40-110); Anion Gap 12 mmol/L (10-20); BUN (Urea Nitrogen) 14 mg/dL (9.8-20.1); Bilirubin, Total 1.1 mg/dL (0.2-1.2); Calc. Creatinine Clearance 124 mL/min (70-130); Calcium 8.9 mg/dL (7.8-10.44); Carbon Dioxide 22 mmol/L (22-29); Chloride 106 mmol/L (98-107); Globulin 2.9 g/dL (2.4-3.5); Glucose 124 mg/dL (70-105); Potassium 3.8 mmol/L (3.5-5.1); Protein, Total 6.6 g/dL (6.0-8.3); Sodium 136 mmol/L (136-145)
[2021-10-11] MEDS: Nitroglycerin 2% Ointment 1 INCH/1 GM Packet TOP SCH ×2 (07:09→15:07)
[2021-10-11] MEDS: Carvedilol 3.125 MG TAB PO SCH (08:27)
[2021-10-11] MEDS: Aspirin Chewable 81 MG TAB PO SCH (10:21)
[2021-10-11] MEDS: Spironolactone 25 MG TAB PO SCH (10:21)
[2021-10-11] MEDS: Lisinopril 10 MG TAB PO SCH (10:21)
[2021-10-11] MEDS ORDERED: Clopidogrel Bisulfate 75 MG TAB PO SCH (10:30)
[2021-10-11] MEDS: TICAGRELOR 90 MG TABLET PO SCH (10:57)
[2021-10-11 11:37] VITALS: BP 122/63; TEMP 98.1
[2021-10-12] MEDS ORDERED: Clopidogrel Bisulfate 75 MG TAB PO SCH (09:00)
== END 2021-10-11 15:00 | disposition home or self-care (01) | DRG 246 ==
LOC: ERS 13:55 → 2SW 15:31 → OBSVTOIN 10-10 11:44
PROVIDERS: ADMIT Family Medicine; ATTEND Emergency Medicine
PROC: 027034Z Dilation of Coronary Artery, One Artery with Drug-eluting Intraluminal Device, Percutaneous Approach (ICD-10-PCS; principal; 2021-10-10)
PROC: 4A023N7 Measurement of Cardiac Sampling and Pressure, Left Heart, Percutaneous Approach (ICD-10-PCS; 2021-10-10)
PROC: B2111ZZ Fluoroscopy of Multiple Coronary Arteries using Low Osmolar Contrast (ICD-10-PCS; 2021-10-10)
PROC: B2151ZZ Fluoroscopy of Left Heart using Low Osmolar Contrast (ICD-10-PCS; 2021-10-10)
DX: I11.0 Hypertensive heart disease with heart failure (principal); Z20.822 Contact with and (suspected) exposure to COVID-19; I50.23 Acute on chronic systolic (congestive) heart failure; I21.A1 Myocardial infarction type 2; T82.855A Stenosis of coronary artery stent, initial encounter; I25.118 Atherosclerotic heart disease of native coronary artery with other forms of angina pectoris; E78.5 Hyperlipidemia, unspecified; Y83.1 Surgical operation with implant of artificial internal device as the cause of abnormal reaction of the patient, or of later complication, without mention of misadventure at the time of the procedure; I25.5 Ischemic cardiomyopathy; J45.20 Mild intermittent asthma, uncomplicated; E78.00 Pure hypercholesterolemia, unspecified; F41.9 Anxiety disorder, unspecified; F32.A Depression, unspecified; Z95.5 Presence of coronary angioplasty implant and graft; Z88.5 Allergy status to narcotic agent; Z88.8 Allergy status to other drugs, medicaments and biological substances; Z91.040 Latex allergy status; Z79.899 Other long term (current) drug therapy; Z91.018 Allergy to other foods; Z79.82 Long term (current) use of aspirin; Z90.49 Acquired absence of other specified parts of digestive tract; Z90.89 Acquired absence of other organs; Z98.51 Tubal ligation status; Z95.810 Presence of automatic (implantable) cardiac defibrillator
CPT/HCPCS: 36415; 71045; 78452; 80048; 80053; 80061; 82553; 83690; 83735; 83880; 84484; 85025; 85347; 85379; 92928; 93005; 93010; 93017; 93306; 93458; 93798; 94760; 96365; 96372; 96375; 99152; 99153; A9500; C1874; C9600; G0378; J0461; J1644; J1650; J1940; J2001; J2250; J2270; J2405; J2785; J3010; J3475; Q9967; U0003; U0005

== ENCOUNTER 2022-03-31 15:50 | Emergency (ER) | payer SELFPAY ==
[2022-03-31] MEDS ORDERED: Ketorolac Tromethamine 30 MG/ML VIAL ONE (17:57)
[2022-03-31 18:16] LABS: #Eosinphils 0.1 thou/uL (0.0-0.7); #Monocytes 0.4 thou/uL (0.11-0.59); #Neutrophils 4.1 thou/uL (1.40-6.50); %Basophils 0.3 % (0.0-1.0); %Eosinophils 1.3 % (0.0-10.0); %Lymphocytes 29.7 % (21.0-51.0); %Monocytes 6.2 % (0.0-10.0); %Neutrophils 62.5 % (42.0-75.0); Hemoglobin 13.2 g/dL (12.0-16.0); Mean Corpuscular HGB CONC 35.5 g/dL (32.0-36.0); Mean Corpuscular Hemoglobin 30.9 pg (27.0-31.0); Mean Platelet Volume 9.6 fL (7.4-10.4); Platelet Count 187 thou/uL (130-400); RBC Distribution Width 11.4 % (11.5-14.5); Red Blood Cell (RBC) Count 4.29 mill/uL (4.20-5.40); White Blood Cell (WBC) Count 6.6 thou/uL (4.8-10.8)
[2022-03-31 18:29] LABS: ALT (SGPT) 18 U/L (8-55); AST (SGOT) 19 U/L (5-34); Albumin 4.5 g/dL (3.5-5.0); Alkaline Phosphatase 97 U/L (40-110); Anion Gap 14 mmol/L (10-20); BUN (Urea Nitrogen) 18 mg/dL (9.8-20.1); Bilirubin, Total 0.5 mg/dL (0.2-1.2); Calc. Creatinine Clearance 0 mL/min (70-130); Calcium 9.3 mg/dL (7.8-10.44); Carbon Dioxide 24 mmol/L (22-29); Chloride 103 mmol/L (98-107); Estimated GFR 101; Globulin 3.1 g/dL (2.4-3.5); Glucose 111 mg/dL (70-105); Lipase 64 U/L (8-78); Potassium 4.1 mmol/L (3.5-5.1); Protein, Total 7.6 g/dL (6.0-8.3); Sodium 137 mmol/L (136-145)
== END 2022-03-31 19:55 | disposition home or self-care (01) ==
LOC: ERS 15:50
DX: M54.50 Low back pain, unspecified (principal); I25.10 Atherosclerotic heart disease of native coronary artery without angina pectoris; I11.0 Hypertensive heart disease with heart failure; I50.9 Heart failure, unspecified; E78.00 Pure hypercholesterolemia, unspecified
CPT/HCPCS: 36415; 70450; 71045; 80053; 83690; 84484; 85025; 96372; J1885

== ENCOUNTER 2022-06-19 15:10 | Emergency (ER) | payer SELFPAY ==
[2022-06-19 16:15] LABS: Hemoglobin 12.5 g/dL (12.0-16.0); Mean Corpuscular HGB CONC 34.2 g/dL (32.0-36.0); Mean Corpuscular Hemoglobin 29.9 pg (27.0-31.0); Mean Corpuscular Volume 87.3 fl (78.0-98.0); Mean Platelet Volume 10.1 fL (7.4-10.4); Platelet Count 173 10x3/uL (130-400); Red Blood Cell (RBC) Count 4.18 mill/uL (4.20-5.40); White Blood Cell (WBC) Count 5.3 10x3/uL (4.8-10.8)
[2022-06-19 16:23] LABS: ALT (SGPT) 23 U/L (8-55); AST (SGOT) 24 U/L (5-34); Albumin 4.3 g/dL (3.5-5.0); Alkaline Phosphatase 98 U/L (40-110); Anion Gap 12 mmol/L (10-20); BUN (Urea Nitrogen) 21 mg/dL (9.8-20.1); Bilirubin, Total 0.5 mg/dL (0.2-1.2); Calc. Creatinine Clearance 0 mL/min (70-130); Calcium 9.2 mg/dL (7.8-10.44); Carbon Dioxide 22 mmol/L (22-29); Chloride 108 mmol/L (98-107); Estimated GFR 97; Globulin 3.1 g/dL (2.4-3.5); Glucose 93 mg/dL (70-105); Lipase 47 U/L (8-78); Potassium 3.8 mmol/L (3.5-5.1); Protein, Total 7.4 g/dL (6.0-8.3); Sodium 138 mmol/L (136-145)
[2022-06-19 16:28] LABS: Band 1 % (5-11); Eosinophils 2 % (0-10); Lymphocytes 35 % (21-51); MDiff Complete? YES; Monocytes 2 % (0-10); Neutrophil 59 % (42-75); Platelet Morphology Comment Appears Adequate; RBC Morphology Normal; Reactive Lymphocytes 1 % (0-10)
[2022-06-19] MEDS ORDERED: Furosemide 20 MG/2 ML VIAL ONE (19:32)
== END 2022-06-19 21:35 | disposition home or self-care (01) ==
LOC: ERS 15:10
DX: J06.9 Acute upper respiratory infection, unspecified (principal); I11.0 Hypertensive heart disease with heart failure; I50.20 Unspecified systolic (congestive) heart failure; J45.909 Unspecified asthma, uncomplicated; E78.00 Pure hypercholesterolemia, unspecified; I25.10 Atherosclerotic heart disease of native coronary artery without angina pectoris; Z79.82 Long term (current) use of aspirin; Z79.899 Other long term (current) drug therapy
CPT/HCPCS: 36415; 71045; 80053; 83690; 83880; 84484; 85025; 87804; 93005; 96374; J1940

== ENCOUNTER 2022-08-14 05:12 | Observation (INO) | payer OTHER, SELFPAY ==
[2022-08-14] MEDS ORDERED: Aspirin Chewable 81 MG TAB ONE ×2 (05:26→13:27)
[2022-08-14 06:38] LABS: SARS-CoV-2 NAA Rapid Test Not Detected (NotDetected)
[2022-08-14 06:48] LABS: #Lymphocytes 1.1 thou/uL (1.20-3.40); #Monocytes 0.3 thou/uL (0.11-0.59); #Neutrophils 3.2 thou/uL (1.40-6.50); %Basophils 0.2 % (0.0-1.0); %Eosinophils 0.8 % (0.0-10.0); %Lymphocytes 24.3 % (21.0-51.0); %Monocytes 5.7 % (0.0-10.0); Hemoglobin 11.7 g/dL (12.0-16.0); Mean Corpuscular Hemoglobin 29.8 pg (27.0-31.0); Mean Corpuscular Volume 87.8 fl (78.0-98.0); Mean Platelet Volume 10.2 fL (7.4-10.4); Platelet Count 151 10x3/uL (130-400); RBC Distribution Width 11.7 % (11.5-14.5); Red Blood Cell (RBC) Count 3.93 mill/uL (4.20-5.40); White Blood Cell (WBC) Count 4.7 10x3/uL (4.8-10.8)
[2022-08-14 07:09] LABS: ALT (SGPT) 71 U/L (8-55); AST (SGOT) 52 U/L (5-34); Albumin 3.9 g/dL (3.5-5.0); Alkaline Phosphatase 116 U/L (40-110); Anion Gap 12 mmol/L (10-20); BUN (Urea Nitrogen) 19 mg/dL (9.8-20.1); Bilirubin, Total 0.9 mg/dL (0.2-1.2); Calc. Creatinine Clearance 0 mL/min (70-130); Calcium 8.8 mg/dL (7.8-10.44); Carbon Dioxide 23 mmol/L (22-29); Chloride 109 mmol/L (98-107); Estimated GFR 97; Globulin 2.7 g/dL (2.4-3.5); Glucose 124 mg/dL (70-105); Potassium 3.8 mmol/L (3.5-5.1); Protein, Total 6.6 g/dL (6.0-8.3); Sodium 140 mmol/L (136-145)
[2022-08-14 07:31] LABS: CKMB 1.2 ng/mL (0-6.6)
[2022-08-14] MEDS ORDERED: Dextrose 5% in Water 1,000 ML IV PRN (08:57)
[2022-08-14] MEDS ORDERED: Dextrose 50% Abboject 50 ML SYRINGE SLOW IVP PRN (08:57)
[2022-08-14] MEDS ORDERED: Guaifenesin DM 100-10/5 ML UDCUP PO PRN (08:57)
[2022-08-14] MEDS ORDERED: Calcium Carbonate 500 MG ChewTAB PO PRN (08:57)
[2022-08-14] MEDS ORDERED: HumaLOG 300 UNITS/3 ML VIAL SC PRN (08:57)
[2022-08-14] MEDS ORDERED: Bisacodyl 10 MG SUPP PR PRN (08:57)
[2022-08-14] MEDS ORDERED: Senokot S 8.6-50 MG TAB PO PRN (08:57)
[2022-08-14] MEDS ORDERED: Ipratropium/Albuterol 3 ML NEB NEB PRN (09:08)
[2022-08-14 09:46] LABS: Troponin I 0.031 ng/mL (< 0.028)
[2022-08-14 12:55] LABS: Troponin I 0.031 ng/mL (< 0.028)
[2022-08-14] MEDS ORDERED: Lisinopril 10 MG TAB ONE (13:27)
[2022-08-14] MEDS ORDERED: Famotidine 20 MG TAB ONE (13:27)
[2022-08-14] MEDS ORDERED: Clopidogrel Bisulfate 75 MG TAB ONE (13:27)
[2022-08-14] MEDS: Famotidine 20 MG TAB PO SCH ×2 (13:34→20:26)
[2022-08-14] MEDS: Aspirin Chewable 81 MG TAB PO SCH (13:34)
[2022-08-14] MEDS: Clopidogrel Bisulfate 75 MG TAB PO SCH (13:34)
[2022-08-14] MEDS: Lisinopril 2.5 MG TAB PO SCH (13:35)
[2022-08-14] MEDS: Furosemide 40 MG/4 ML VIAL SLOW IVP SCH (15:48)
[2022-08-14 15:54] VITALS: BMI 32.4
[2022-08-14] MEDS: Carvedilol 3.125 MG TAB PO SCH (17:44)
[2022-08-14] MEDS ORDERED: Communication Order-Pharmacy FS SCH (19:45)
[2022-08-14] MEDS: Montelukast Sodium 10 mg Tablet PO SCH (20:26)
[2022-08-14] MEDS: Atorvastatin Calcium 40 MG TAB PO SCH (20:26)
[2022-08-15 05:22] LABS: #Lymphocytes 0.8 thou/uL (1.20-3.40); #Monocytes 0.2 thou/uL (0.11-0.59); #Neutrophils 2.5 thou/uL (1.40-6.50); %Basophils 0.2 % (0.0-1.0); %Eosinophils 1.4 % (0.0-10.0); %Lymphocytes 22.1 % (21.0-51.0); %Monocytes 6.5 % (0.0-10.0); %Neutrophils 69.9 % (42.0-75.0); Hemoglobin 12.1 g/dL (12.0-16.0); Mean Corpuscular HGB CONC 34.8 g/dL (32.0-36.0); Mean Corpuscular Hemoglobin 30.4 pg (27.0-31.0); Mean Corpuscular Volume 87.3 fl (78.0-98.0); Mean Platelet Volume 9.8 fL (7.4-10.4); Platelet Count 155 10x3/uL (130-400); RBC Distribution Width 11.7 % (11.5-14.5); Red Blood Cell (RBC) Count 3.99 mill/uL (4.20-5.40); White Blood Cell (WBC) Count 3.5 10x3/uL (4.8-10.8)
[2022-08-15 05:44] LABS: Anion Gap 14 mmol/L (10-20); BUN (Urea Nitrogen) 19 mg/dL (9.8-20.1); Calc. Creatinine Clearance 109 mL/min (70-130); Calcium 9.2 mg/dL (7.8-10.44); Carbon Dioxide 24 mmol/L (22-29); Cardiac Risk 3.7 (Less than 4.5); Chloride 106 mmol/L (98-107); Cholesterol 151 mg/dl (< 200 Desired); Estimated GFR 101; Glucose 113 mg/dL (70-105); HDL Cholesterol 41 mg/dL (>60 Neg Risk); LDL Cholesterol, Calculated 84 mg/dL; Potassium 3.6 mmol/L (3.5-5.1); Sodium 140 mmol/L (136-145); Triglycerides 129 mg/dL (Less than 150)
[2022-08-15] MEDS: Carvedilol 3.125 MG TAB PO SCH ×2 (06:20→17:03)
[2022-08-15] MEDS: Clopidogrel Bisulfate 75 MG TAB PO SCH (06:21)
[2022-08-15] MEDS: Aspirin Chewable 81 MG TAB PO SCH (06:21)
[2022-08-15] MEDS: Lisinopril 2.5 MG TAB PO SCH (06:22)
[2022-08-15] MEDS: Famotidine 20 MG TAB PO SCH ×2 (06:22→20:18)
[2022-08-15] MEDS: Furosemide 40 MG/4 ML VIAL SLOW IVP SCH ×2 (07:32→15:40)
[2022-08-15] MEDS: Loperamide HCl 2 MG CAP PO PRN (09:02)
[2022-08-15] MEDS ORDERED: Adenosine 6 MG/2 ML VIAL ONE (09:03)
[2022-08-15] MEDS ORDERED: Lidocaine 1% (PF) 30 ML VIAL ONE (09:03)
[2022-08-15] MEDS ORDERED: Heparin 10,000 UNITS/ 10 ML VIAL ONE (09:03)
[2022-08-15] MEDS ORDERED: Nitroglycerin 100MG/250ML BOT 0 ML ONE (09:03)
[2022-08-15] MEDS ORDERED: Verapamil 5 MG/2 ML VIAL ONE (09:46)
[2022-08-15] MEDS ORDERED: Midazolam HCl 2 mg/2 ml Vial ONE (11:22)
[2022-08-15] MEDS ORDERED: FENTANYL 50 MCG/ML 1 ML VIAL ONE (11:22)
[2022-08-15] MEDS: Acetaminophen 325 MG TAB PO PRN (20:18)
[2022-08-15] MEDS: Atorvastatin Calcium 40 MG TAB PO SCH (20:18)
[2022-08-15] MEDS: Montelukast Sodium 10 mg Tablet PO SCH (20:18)
[2022-08-16 05:11] LABS: #Basophils 0.1 thou/uL (0.0-0.2); #Eosinphils 0.1 thou/uL (0.0-0.7); #Lymphocytes 0.8 thou/uL (1.20-3.40); #Monocytes 0.2 thou/uL (0.11-0.59); #Neutrophils 2.4 thou/uL (1.40-6.50); %Basophils 2.2 % (0.0-1.0); %Eosinophils 1.6 % (0.0-10.0); %Lymphocytes 22.8 % (21.0-51.0); %Monocytes 6.5 % (0.0-10.0); %Neutrophils 66.9 % (42.0-75.0); Hemoglobin 11.5 g/dL (12.0-16.0); Mean Corpuscular HGB CONC 34.7 g/dL (32.0-36.0); Mean Corpuscular Hemoglobin 30.4 pg (27.0-31.0); Mean Corpuscular Volume 87.6 fl (78.0-98.0); Mean Platelet Volume 9.5 fL (7.4-10.4); Platelet Count 147 10x3/uL (130-400); RBC Distribution Width 11.7 % (11.5-14.5); Red Blood Cell (RBC) Count 3.79 mill/uL (4.20-5.40); White Blood Cell (WBC) Count 3.5 10x3/uL (4.8-10.8)
[2022-08-16 05:49] LABS: ALT (SGPT) 41 U/L (8-55); AST (SGOT) 24 U/L (5-34); Albumin 3.5 g/dL (3.5-5.0); Alkaline Phosphatase 105 U/L (40-110); Anion Gap 13 mmol/L (10-20); BUN (Urea Nitrogen) 17 mg/dL (9.8-20.1); Calc. Creatinine Clearance 112 mL/min (70-130); Calcium 8.8 mg/dL (7.8-10.44); Carbon Dioxide 22 mmol/L (22-29); Chloride 108 mmol/L (98-107); Estimated GFR 102; Globulin 2.9 g/dL (2.4-3.5); Glucose 108 mg/dL (70-105); Potassium 3.5 mmol/L (3.5-5.1); Protein, Total 6.4 g/dL (6.0-8.3); Sodium 139 mmol/L (136-145)
[2022-08-16] MEDS: Acetaminophen 325 MG TAB PO PRN (06:19)
[2022-08-16] MEDS: Furosemide 40 MG/4 ML VIAL SLOW IVP SCH (06:19)
[2022-08-16 08:45] VITALS: BP 129/57; TEMP 97.8
[2022-08-16] MEDS: Carvedilol 3.125 MG TAB PO SCH (08:49)
[2022-08-16] MEDS: Famotidine 20 MG TAB PO SCH (08:50)
[2022-08-16] MEDS: Aspirin Chewable 81 MG TAB PO SCH (08:50)
[2022-08-16] MEDS: Lisinopril 2.5 MG TAB PO SCH (08:50)
[2022-08-16] MEDS: Clopidogrel Bisulfate 75 MG TAB PO SCH (08:50)
[2022-08-16] MEDS: Loperamide HCl 2 MG CAP PO PRN (08:55)
== END 2022-08-16 10:47 | disposition home or self-care (01) ==
LOC: ERS 05:12 → ERHOLD 09:47 → 2SW 14:47
PROVIDERS: ADMIT Internal Medicine; ATTEND Internal Medicine
PROC: 4A023N7 Measurement of Cardiac Sampling and Pressure, Left Heart, Percutaneous Approach (ICD-10-PCS; principal; 2022-08-15)
PROC: B2111ZZ Fluoroscopy of Multiple Coronary Arteries using Low Osmolar Contrast (ICD-10-PCS; 2022-08-15)
DX: I11.0 Hypertensive heart disease with heart failure (principal); I50.23 Acute on chronic systolic (congestive) heart failure; I25.10 Atherosclerotic heart disease of native coronary artery without angina pectoris; I25.5 Ischemic cardiomyopathy; E78.00 Pure hypercholesterolemia, unspecified; J44.9 Chronic obstructive pulmonary disease, unspecified; J45.20 Mild intermittent asthma, uncomplicated; R73.03 Prediabetes; I08.1 Rheumatic disorders of both mitral and tricuspid valves; Z87.891 Personal history of nicotine dependence; Z91.190 Patient's noncompliance with other medical treatment and regimen due to financial hardship; Z79.02 Long term (current) use of antithrombotics/antiplatelets; Z79.82 Long term (current) use of aspirin; Z79.899 Other long term (current) drug therapy; Z88.5 Allergy status to narcotic agent; Z91.011 Allergy to milk products; Z91.040 Latex allergy status; Z95.5 Presence of coronary angioplasty implant and graft; Z95.810 Presence of automatic (implantable) cardiac defibrillator
CPT/HCPCS: 36415; 36416; 71045; 80048; 80053; 80061; 82553; 83880; 84443; 84484; 85025; 85347; 93005; 93010; 93306; 93458; 93571; 93798; 96374; 99152; 99153; C1769; C1894; G0378; J0153; J1644; J1650; J1940; J2001; J2250; J3010

== ENCOUNTER 2024-08-03 04:20 | Emergency (ER) | payer OTHER ==
[2024-08-03 05:04] LABS: Bilirubin Negative (Negative); Blood, Urine 3+ (Negative); CAUTI Indications for Culture Dysuria,urgency,freq; Clarity Extra Turbid (Clear); Glucose, Urine (Dipstick) Normal (Negative); Ketone, Urine Negative (Negative); Leukocyte 500 Leu/uL (Negative); Nitrite Negative (Negative); Protein, Urine (Dipstick) 200 mg/dL (Neg-Trace); RBC/HPF Greater than 50 HPF (0-3); Urobilinogen Normal mg/dL (Less than 2); WBC/HPF Greater than 50 HPF (0-3); pH, Urine 6.5 (5.0-9.0)
[2024-08-03 05:05] LABS: Bacteria/HPF 1+ HPF (None Seen)
[2024-08-03 05:06] LABS: Urine Culture Reflex Yes Yes
[2024-08-03] MEDS ORDERED: Ketorolac Tromethamine 30 MG (1 mL) VIAL ONE (05:20)
[2024-08-03] MEDS ORDERED: Sodium Chloride 0.9% 100 ML ONE (05:20)
[2024-08-03] MEDS ORDERED: cefTRIAXone (ROCEPHIN) 1 GM VIAL ONE (05:20)
[2024-08-03 05:24] LABS: #Basophils Less than 0.03 10x3/uL (0.0-0.2); %Basophils 0.3 % (0.0-1.0); %Eosinophils 1.2 % (0.0-10.0); %Lymphocytes 18.7 % (21.0-51.0); %Monocytes 4.1 % (0.0-10.0); %Neutrophils 75.4 % (42.0-75.0); Hemoglobin 11.7 g/dL (12.0-16.0); Mean Corpuscular HGB CONC 33.4 g/dL (32.0-36.0); Mean Corpuscular Volume 86.6 fL (78.0-98.0); Mean Platelet Volume 11.6 fL (7.4-10.4); Platelet Count 174 10x3/uL (130-400); RBC Distribution Width 11.9 % (11.5-14.5); Red Blood Cell (RBC) Count 4.04 mill/uL (4.20-5.40)
[2024-08-03 05:50] LABS: ALT (SGPT) 20 U/L (8-55); AST (SGOT) 21 U/L (5-34); Albumin 3.8 g/dL (3.4-4.8); Alkaline Phosphatase 83 U/L (40-110); Anion Gap 15 mmol/L (10-20); BUN (Urea Nitrogen) 14 mg/dL (9.8-20.1); Bilirubin, Total 0.6 mg/dL (0.2-1.2); Calc. Creatinine Clearance 0 mL/min (70-130); Calcium 8.9 mg/dL (7.8-10.44); Carbon Dioxide 20 mmol/L (23-31); Chloride 111 mmol/L (98-107); Estimated GFR 103; Globulin 3.5 g/dL (2.4-3.5); Glucose 142 mg/dL (80-115); Potassium 3.7 mmol/L (3.5-5.1); Protein, Total 7.3 g/dL (5.8-8.1); Sodium 142 mmol/L (136-145)
== END 2024-08-03 07:15 | disposition home or self-care (01) ==
LOC: ERS 04:20
DX: N10 Acute pyelonephritis (principal); I11.0 Hypertensive heart disease with heart failure; I50.9 Heart failure, unspecified; I25.10 Atherosclerotic heart disease of native coronary artery without angina pectoris; Z95.5 Presence of coronary angioplasty implant and graft
CPT/HCPCS: 36415; 74176; 80053; 81001; 85025; 87077; 87086; 87186; 96365; 96375; J0696; J1885

== ENCOUNTER 2024-08-04 13:57 | Emergency (ER) | payer OTHER ==
[2024-08-04 14:46] LABS: #Basophils Less than 0.03 10x3/uL (0.0-0.2); #Eosinophils Less than 0.03 10x3/uL (0.0-0.7); %Basophils 0.2 % (0.0-1.0); %Eosinophils 0.2 % (0.0-10.0); %Lymphocytes 15.6 % (21.0-51.0); %Monocytes 6.4 % (0.0-10.0); %Neutrophils 77.2 % (42.0-75.0); Hematocrit 34.9 % (36.0-47.0); Hemoglobin 11.4 g/dL (12.0-16.0); Mean Corpuscular HGB CONC 32.7 g/dL (32.0-36.0); Mean Corpuscular Hemoglobin 29.2 pg (27.0-31.0); Mean Corpuscular Volume 89.5 fL (78.0-98.0); Mean Platelet Volume 11.6 fL (7.4-10.4); Platelet Count 127 10x3/uL (130-400)
[2024-08-04 14:58] LABS: ALT (SGPT) 24 U/L (8-55); AST (SGOT) 24 U/L (5-34); Albumin 3.8 g/dL (3.4-4.8); Alkaline Phosphatase 85 U/L (40-110); Anion Gap 14 mmol/L (10-20); BUN (Urea Nitrogen) 10 mg/dL (9.8-20.1); Bilirubin, Total 0.7 mg/dL (0.2-1.2); Calc. Creatinine Clearance 0 mL/min (70-130); Calcium 8.6 mg/dL (7.8-10.44); Carbon Dioxide 20 mmol/L (23-31); Chloride 107 mmol/L (98-107); Estimated GFR 100; Globulin 3.5 g/dL (2.4-3.5); Glucose 145 mg/dL (80-115); Potassium 3.4 mmol/L (3.5-5.1); Protein, Total 7.3 g/dL (5.8-8.1); Sodium 138 mmol/L (136-145)
[2024-08-04] MEDS ORDERED: Acetaminophen 500 MG TAB ONE (15:06)
[2024-08-04] MEDS ORDERED: Ipratropium/Albuterol 3 ML NEB ONE (15:06)
[2024-08-04] MEDS ORDERED: Dexamethasone 10 MG/ML VIAL ONE (15:06)
[2024-08-04 15:19] LABS: Bilirubin Negative (Negative); Blood, Urine Negative (Negative); Glucose, Urine (Dipstick) 250 mg/dL (Negative); Ketone, Urine 15 mg/dL (Negative); Leukocyte Negative (Negative); Nitrite Positive (Negative)
[2024-08-04 15:37] LABS: Troponin I 0.023 ng/mL (< 0.028)
[2024-08-04 15:58] LABS: Clarity Clear (Clear); Specific Gravity, Urine 1.018 (1.002-1.036)
[2024-08-04 15:59] LABS: pH, Urine 5.3 (5.0-9.0)
[2024-08-04 16:07] LABS: CAUTI Indications for Culture Dysuria,urgency,freq; Protein, Urine (Dipstick) Unable to Interpret mg/dL (Neg-Trace); RBC/HPF 0-3 HPF (0-3); Urobilinogen UNABLE TO INTERPRET mg/dL (Less than 2)
[2024-08-04 16:13] LABS: Urine Culture Reflex No No
== END 2024-08-04 16:45 | disposition home or self-care (01) ==
LOC: ERS 13:57
DX: U07.1 COVID-19 (principal); N10 Acute pyelonephritis; I25.10 Atherosclerotic heart disease of native coronary artery without angina pectoris; I10 Essential (primary) hypertension; Z95.0 Presence of cardiac pacemaker
CPT/HCPCS: 36415; 71045; 80053; 81001; 83605; 83880; 84484; 85025; 87040; 87086; 87428; 93005; J1100; J7620

== ENCOUNTER 2024-08-19 12:07 | Emergency (ER) | payer OTHER ==
[~2024-08-19 12:07] MED LIST: Iopamidol 370 76% 100 ML VIAL ONE
[2024-08-19] MEDS ORDERED: Ketorolac Tromethamine 30 MG (1 mL) VIAL ONE (13:59)
[2024-08-19 14:23] LABS: #Basophils Less than 0.03 10x3/uL (0.0-0.2); %Basophils 0.2 % (0.0-1.0); %Eosinophils 0.9 % (0.0-10.0); %Lymphocytes 25.2 % (21.0-51.0); %Monocytes 5.7 % (0.0-10.0); %Neutrophils 67.8 % (42.0-75.0); Hematocrit 32.1 % (36.0-47.0); Hemoglobin 10.9 g/dL (12.0-16.0); Mean Corpuscular Hemoglobin 29.4 pg (27.0-31.0); Mean Corpuscular Volume 86.5 fL (78.0-98.0); Mean Platelet Volume 11.3 fL (7.4-10.4); Platelet Count 151 10x3/uL (130-400); RBC Distribution Width 12.3 % (11.5-14.5); Red Blood Cell (RBC) Count 3.71 mill/uL (4.20-5.40)
[2024-08-19 14:40] LABS: ALT (SGPT) 79 U/L (Less than 34); AST (SGOT) 64 U/L (11-34); Albumin 3.6 g/dL (3.1-4.5); Alkaline Phosphatase 69 U/L (40-110); Anion Gap 11 mmol/L (10-20); BUN (Urea Nitrogen) 13 mg/dL (9.8-20.1); Bilirubin, Total 0.5 mg/dL (0.3-1.2); Calc. Creatinine Clearance 0 mL/min (70-130); Calcium 8.5 mg/dL (7.8-10.44); Carbon Dioxide 19 mmol/L (23-31); Chloride 111 mmol/L (98-107); Estimated GFR 104; Globulin 2.7 g/dL (2.4-3.5); Glucose 166 mg/dL (80-115); Lipase 30 U/L (8-78); Magnesium 1.4 mg/dL (1.6-2.6); Potassium 3.2 mmol/L (3.5-5.1); Protein, Total 6.3 g/dL (5.8-8.1); Sodium 138 mmol/L (136-145)
[2024-08-19 14:42] LABS: Bacteria/HPF None Seen HPF (None Seen); Bilirubin Negative (Negative); Blood, Urine Negative (Negative); CAUTI Indications for Culture Dysuria,urgency,freq; Clarity Clear (Clear); Glucose, Urine (Dipstick) Normal (Negative); Ketone, Urine Negative (Negative); Leukocyte Negative Leu/uL (Negative); Nitrite Negative (Negative); Protein, Urine (Dipstick) 20 mg/dL (Neg-Trace); RBC/HPF 0-3 HPF (0-3); Squamous Epithelial 0-3 HPF (0-3); Urobilinogen Normal mg/dL (Less than 2); WBC/HPF None Seen HPF (0-3)
[2024-08-19 14:45] LABS: Specific Gravity, Urine Greater than 1.060 (1.002-1.036)
[2024-08-19 14:47] LABS: Urine Culture Reflex No No
[2024-08-19] MEDS ORDERED: Magnesium 2 GM/50 ML BAG (IN WATER) ONE (14:49)
[2024-08-19] MEDS ORDERED: Potassium Bicarbonate/Cit Ac 25 MEQ TAB ONE (14:49)
== END 2024-08-19 15:41 | disposition home or self-care (01) ==
LOC: ERS 12:07
DX: K64.4 Residual hemorrhoidal skin tags (principal); R19.7 Diarrhea, unspecified; E87.6 Hypokalemia; E83.42 Hypomagnesemia; I11.0 Hypertensive heart disease with heart failure; I50.9 Heart failure, unspecified; Z95.5 Presence of coronary angioplasty implant and graft
CPT/HCPCS: 74177; 80053; 81001; 83605; 83690; 83735; 85025; 87428; 96374; 96375; J1885; J3475; Q9967